=== PATIENT | female | born 1955 | race Caucasian/White ===

== ENCOUNTER 2021-04-04 08:38 | Emergency (ER) | payer OTHER, SELFPAY ==
[2021-04-04 08:41] VITALS: BP 147/79; PULSE 68; TEMP 36.4; O2SAT 100
--- NOTE | 2021-04-04 08:45 | DI.RAD_ITS ---
Exam(s) XR KNEE RT 3V AP,LAT,TALIB EXAM: XR KNEE RT 3V AP,LAT,TALIB CLINICAL HISTORY: pain. TECHNIQUE: 2D digital imaging was performed. COMPARISON: No exams were available for comparison FINDINGS: No evidence of fracture but there is a joint effusion noted. Signifies a probable internal derangeme nt. Mild degenerative changes. No osseous lesions. IMPRESSION: Joint effusion. No obvious fractures. The presence of a joint effusion signifies presence of a mobi le internal derangement. Orthopedic follow-up recommended. DATA REPOSITORY: RADIATION DOSE DELIVERED:
--- NOTE | 2021-04-04 08:54 | ED.GENADUL_ITS ---
Discharge Plan Disposition Patient Disposition: HOME Condition: Stable Discharge Details Clinical Impression: Knee pain, right Primary Care Provider: Jazmine Arora ED Provider: Leonardo Figueredo Home Meds and New Rx's Prescriptions: Continued omega-3 acid ethyl esters 1 gram capsule 2 cap PO BID Qty: 360 RF: 3 gemfibrozil 600 mg tablet 600 mg PO BID RF: 0 famotidine 40 mg tablet 40 mg PO DAILY RF: 0 amlodipine 5 mg tablet 5 mg PO DAILY RF: 0 lisinopril 5 mg tablet 5 mg PO DAILY RF: 0 cyanocobalamin (vitamin B-12) 1,000 mcg capsule 1,000 mcg PO DAILY RF: 0 cholecalciferol (vitamin D3) 25 mcg (1,000 unit) capsule 25 mcg PO DAILY RF: 0 aspirin-acetaminophen (buffer) 250-250 mg Tablet 2 tab PO TID PRNRF: 0 Discharge Instructions Additional Instructions: Your xray showed no broken bones but you did have a small effusion which indicates you likely have an internal knee injury follow up with your primary care provider to discuss having an MRI if you feel more ill, have severe worsening pain, fevers or spreading redness return to the emergency department Medical Decision Making 65 yo female with hx of solitary kidney with ckd, osteoenia, gerd, asthma htn, who comes in with 1-2 months of right knee pain. She can't recall any significant trauma and the pain has slowly been worsening. She denies fevers, chills, dyspnea, abdomen pain, chest pain. She localizes the pain to the posterior knee and has tenderness here. Mild swelling of the knee and ankle, no pain in the ankle and has full range of the ankle with intact sensation. Normal cap refill and pulses. She can flex the knee but limited due to pain and can get it to about 45 degrees, can fully extend, no pain in the hip with full rom. She is able to bear weight. I suspect arthritis vs strain but given the mild swelling will obtain u/s to evaluate for dvt vs chapa's cyst. She has no findings on exam to suggest septic joint, no warmth or erythema. Will xray to evaluate for underlying fracture though unlikely given no significant trauma xray shows joint effusion no fractures and likely indicated mobile internal derangement. Suspect meniscus injury and discussed with her unlikely dvt with this finding and she doesn't want to stay for an u/s which I feel is reasonable. Placed in hinged knee brace and advised to f/u with pcp and possible mri Differential Diagnosis Differential Diagnosis: dvt, strain, arthritis Imaging Data Radiologic Study: Attestation: I personally reviewed and interpreted this imaging study as follows: Imaging: X-Ray Radiologist's impression: IMPRESSION: Joint effusion. No obvious fractures. The presence of a joint effusion signifies presence of a mobile internal derangement. Orthopedic follow-up recommended HPI General Mode of arrival: ambulatory . Date/Time Provider Initiated Documentation: 04/04/21 08:45 . Limitations to Documentation: no limitations . Information obtained by: patient . History of Present Illness 65 year old F presents to the emergency department with the chief complaint of right knee pain, described as moderate, Quality is described as aching, and is localized to the right and lower extremity. Patient reports no radiation. Patient started experiencing this month(s) (1) and it has been constant. Rest improves symptom(s), Movement worsens symptoms . Patient notes denies fever/chills and weakness. Patient did receive the following treatments prior to arrival, none Related Data Home Medications Medication Instructions Recorded Confirmed amlodipine 5 mg tablet 5 mg PO DAILY 03/05/21 04/04/21 cholecalciferol (vitamin D3) 25 25 mcg PO DAILY 03/05/21 04/04/21 mcg (1,000 unit) capsule cyanocobalamin (vitamin B-12) 1,000 mcg PO DAILY 03/05/21 04/04/21 1,000 mcg capsule famotidine 40 mg tablet 40 mg PO DAILY 03/05/21 04/04/21 gemfibrozil 600 mg tablet 600 mg PO BID 03/05/21 04/04/21 lisinopril 5 mg tablet 5 mg PO DAILY 03/05/21 04/04/21 omega-3 acid ethyl esters 1 gram 2 cap PO BID #360 cap 03/07/21 04/04/21 capsule aspirin-acetaminophen (buffer) 2 tab PO TID PRN 04/04/21 04/04/21 Previous Rx's Medication Instructions Recorded omega-3 acid ethyl esters 1 gram 2 cap PO BID #360 cap 03/07/21 capsule Allergies Allergy/AdvReac Type Severity Reaction Status Date / Time Penicillins Allergy Severe Anaphylaxis Verified 04/04/21 08:46 Sulfa (Sulfonamide Allergy Severe Anaphylaxis Verified 04/04/21 08:46 Antibiotics) General Stated Complaint: Orthopedic ALYSHA: 4 Review of Systems All systems reviewed & are unremarkable except as noted in HPI and below Constitutional Constitutional: Denies chills, Denies fever(s) and Denies weakness Cardiovascular Cardiovascular: Denies chest pain and Denies dyspnea Respiratory Respiratory: Denies cough and Denies dyspnea Gastrointestinal Gastrointestinal: Denies abdominal pain, Denies nausea and Denies vomiting Neurologic Neurologic: Denies weakness [facility] Medical History (Updated 04/04/21 @ 10:47 by Leonardo Figueredo MD) Cannabis dependence (~05/2020) Cobalamin deficiency Constipation (~05/2017) Family history of BRCA gene positive Gouty arthropathy History of ectopic Hypercalcemia (~11/2017) Hyperuricemia (~12/2017) Metabolic acidosis Photophobia (~09/2019) Positional vertigo (~05/2020) Tachycardia (~12/2017) Tobacco dependence (~07/2010) 2019 stopped Urinary incontinence, mixed (~11/2018) Vertiginous syndrome (~06/2010) Vitamin D deficiency Surgical History (Updated 03/05/21 @ 17:07 by Marli Allan RN) H/O lumpectomy (~1975) Left wrist H/O right mastectomy (10/23/15) H/O tubal ligation (~1975) History of bilateral salpingo-oophorectomy (BSO) (08/04/15) History of cholecystectomy (05/12/14) History of endometrial ablation (~2008) History of left mastectomy (02/03/12) History of nephrectomy (~1955) Hx of cataract extraction S/P breast reconstruction, bilateral (~2015) S/P lumpectomy, left breast (~1987) S/P thyroid biopsy (01/22/19) Family History (Updated 03/07/21 @ 13:47 by Cele Falk LPN) Father Colon cancer Prostate cancer Cancer skin Heart disease Mother Depression Heart disease Brother , at age 52 from Pancreatic Ca Pancreatic cancer Social History (Updated 03/07/21 @ 13:48 by Cele Falk LPN) Smoking/Tobacco Use Status: Former Tobacco Use Quit Date: 01/05/21 Tobacco: How many years used: 30 Smoking risk assessment performed?: Yes Alcohol Intake: never Drug use: Occasionally Substance use type: marijuana Adopted: No Caregiver/Support person: No Foster care: No Household members: spouse and children Housing: house Number of Children: 3 number of grandchildren: 10 Communication Needs: None Education Level: college Details: bachelor's degree Do you need help understanding health information?: Rarely current occupation: retired NURSE Pets and animals: Yes (3) Pets and animals: dog(s) Sexually active: No Do you think of yourself as: straight/heterosexual Current gender identity: female What is your relationship status?: How often do you talk on the phone with friends or family?: three or more times per week How often do you get together with friends or relatives?: three or more times per week Do you belong to any clubs or organized social groups?: no Panel score (0-1 are the most socially isolated patients): 2 What type of physical activity do you participate in: walking and bicycling Duration: 60-90 minutes/day Frequency: daily Lavern/Scientology: None Special lavern needs: Yes Agree to transfusion: No Seatbelt use: sometimes Helmet use: Yes Helmet use: sometimes Drive intox or ride w/intox driver's license examiner: No Do you feel safe at home: Yes Do you feel safe in your relationship?: Yes Exam Const General: no acute distress Orientation: alert HENMT Head: normal to inspection Ears: external ears normal General nose exam: external nose normal Mouth: moist mucous membranes Eyes General: appearance normal, both eyes and all related structures Neck Neck: normal visual inspection Resp Effort & Inspection: normal respiratory effort and able to speak in complete sentences Cardio Rate: regular rate Skin General skin exam: no rashes or lesions noted Neuro General: patient alert and patient oriented x3 Extrem General: capillary refill normal Psych Mental Status: mental status grossly normal Course Vital Signs Vital signs: Vital Signs Temperature 36.4 C L 04/04/21 08:41 Pulse 68 04/04/21 08:41 Blood Pressure 147/79 H 04/04/21 08:41 Pulse Oximetry 100 04/04/21 08:41 Temperature 36.4 C L 04/04/21 08:41 Temperature Source Temporal Artery Scan 04/04/21 08:41 Pulse 68 04/04/21 08:41 Respiratory Effort Non-Labored 04/04/21 08:45 Blood Pressure 147/79 H 04/04/21 08:41 Blood Pressure Position Supine 04/04/21 08:41 Pulse Oximetry 100 04/04/21 08:41 Oxygen Delivery Method Room Air 04/04/21 08:41 Oxygen Flow Rate 0 04/04/21 08:41 Pain Level 10 04/04/21 08:49
[2021-04-04 10:54] VITALS: TEMP 36.9
== END 2021-04-04 11:09 | disposition home or self-care (01) ==
PROVIDERS: Emergency Provider Emergency Medicine; PCP Internal Medicine
DX: M25.461 Effusion, right knee (principal); I12.9 Hypertensive chronic kidney disease with stage 1 through stage 4 chronic kidney disease, or unspecified chronic kidney disease; N18.9 Chronic kidney disease, unspecified
CPT/HCPCS: 73562; 99283

== ENCOUNTER 2021-04-13 01:17 | Outpatient (CLI) | payer OTHER, SELFPAY ==
[2021-04-13 09:21] LABS: ALT 8 U/L (14-59); AST 11 U/L (15-37); Albumin 3.4 g/dL (3.4-5.0); Alkaline Phosphatase 119 U/L (46-116); Anion Gap 12.7 mmol/L (3-11); BUN 29 mg/dL (7-18); Bilirubin, Total 0.1 mg/dL (0.2-1.0); CO2 23.3 mmol/L (21.0-32.0); Calcium 9.9 mg/dL (8.5-10.1); Calculated LDL 155 mg/dL (<100); Chloride 107 mmol/L (98-107); Cholesterol 224 mg/dL (<200); Glucose 90 mg/dL (74-106); HDL Cholesterol 42 mg/dL (40-60); Potassium 4.7 mmol/L (3.5-5.1); Sodium 143 mmol/L (136-145); TSH 0.98 uIU/mL (0.36-3.74); Total Protein 6.9 g/dL (6.4-8.2); Triglyceride 139 mg/dL (<150)
== END 2021-04-13 01:18 | disposition home or self-care (01) ==
LOC: LBO 01:18
PROVIDERS: PCP Internal Medicine; Visit Provider Internal Medicine
DX: I10 Essential (primary) hypertension (principal); E78.2 Mixed hyperlipidemia; E04.2 Nontoxic multinodular goiter; K76.0 Fatty (change of) liver, not elsewhere classified
CPT/HCPCS: 36415; 80053; 80061; 84443

== ENCOUNTER 2021-05-14 03:27 | Outpatient (CLI) | payer OTHER, SELFPAY ==
[2021-05-14 14:15] LABS: CREATININE 0.9 mg/dL (0.55-1.02); Uric Acid 5.8 mg/dL (2.6-6.0)
[2021-05-14 14:54] LABS: Vitamin B12 1613 pg/mL (193-986)
== END 2021-05-14 03:28 | disposition home or self-care (01) ==
LOC: LBO 03:27
PROVIDERS: PCP Internal Medicine; Visit Provider Internal Medicine
DX: E53.8 Deficiency of other specified B group vitamins (principal); N18.2 Chronic kidney disease, stage 2 (mild); M10.9 Gout, unspecified
CPT/HCPCS: 36415; 82565; 82607; 84550

== ENCOUNTER 2021-07-05 18:17 | Outpatient (REF) | payer OTHER, SELFPAY ==
[2021-07-05 14:54] LABS: Crystals (BF) No Crystals seen
[2021-07-05 15:12] LABS: Clarity Cloudy; Nucleated Cells 7815 uL (0)
[2021-07-05 15:13] LABS: Mononuclear Cells 40 %; Polynuclear Cells 60 %
== END 2021-07-05 18:18 | disposition home or self-care (01) ==
LOC: LBN 18:17
PROVIDERS: PCP Internal Medicine; Visit Provider Student in an Organized Health Care Education/Training Program
DX: M25.561 Pain in right knee (principal)
CPT/HCPCS: 89051; 89060

== ENCOUNTER → 2021-07-18 00:35 | Outpatient (CLI) | payer OTHER, SELFPAY ==
--- NOTE | 2021-07-18 10:30 | DI.MRI_ITS ---
Exam(s) MR LOWER JOINT RT WO EXAM: MR LOWER JOINT RT WO CLINICAL HISTORY: PAIN,INTERNAL DERANGEMENT RT KNEE, M23.91. TECHNIQUE: Multiplanar multisequence MRI was performed. COMPARISON: CR XR KNEE RT 3V AP,LAT,TALIB from 04/04/2021 FINDINGS: BONES: There is no fracture or contusion pattern. JOINTS: Articular cartilage is unremarkable. There is a large joint effusion. TENDONS: Extensor mechanism: Unremarkable. Medial retinaculum: Unremarkable. Lateral retinaculum: Unremarkable. Popliteus: Unremarkable. MUSCLES: Unremarkable. MENISCI: There is a tear of the body and posterior horn of the medial meniscus. There is a rounded h yperintense focus in the body of the meniscus which may represent a meniscal cyst. There is abnormal signal seen in the posterior aspect of the body of the lateral meniscus consistent with a tear. SOFT TISSUES: There is a popliteal cyst. There is fluid seen in the soft tissues around the poplitea l cyst suggesting a rupture. LIGAMENTS: Anterior Cruciate: Unremarkable. Posterior Cruciate: Unremarkable. Medial Collateral:Unremarkable. Lateral Collateral: Unremarkable. OTHER: IMPRESSION: 1. There is a tear of the body and posterior horn of the medial meniscus with findings suggestive of meniscal cyst. 2. Findings of a tear of the body of the lateral meniscus. 3. Large popliteal cyst with findings suggestive of rupture. 4. Large joint effusion. DATA REPOSITORY:
== END ==
PROVIDERS: PCP Internal Medicine; Visit Provider Student in an Organized Health Care Education/Training Program
DX: S83.241A Other tear of medial meniscus, current injury, right knee, initial encounter (principal); S83.281A Other tear of lateral meniscus, current injury, right knee, initial encounter; M71.21 Synovial cyst of popliteal space [Baker], right knee; M25.461 Effusion, right knee
CPT/HCPCS: 73721

== ENCOUNTER 2021-08-13 04:00 | Outpatient (CLI) | payer OTHER, SELFPAY ==
[2021-08-14 20:41] LABS: COVID-19 RT-PCR UVMMC Result Negative (Negative)
== END 2021-08-13 04:01 | disposition home or self-care (01) ==
LOC: LBO 04:01
PROVIDERS: PCP Internal Medicine; Visit Provider Student in an Organized Health Care Education/Training Program
DX: Z20.822 Contact with and (suspected) exposure to COVID-19 (principal)
CPT/HCPCS: 87635; U0003

== ENCOUNTER 2021-08-15 09:45 | Day surgery (SDC) | payer OTHER, SELFPAY ==
[2021-08-15] VITALS (9 sets, daily range): BP systolic 122–155; BP diastolic 55–82; PULSE 50–75; RESP 12–20; TEMP 36.1–36.4; O2SAT 96–100; BMI 20.5
--- NOTE | 2021-08-15 06:43 | W.PM.DSUDISC ---
Discharge Plan Disposition Patient Disposition: HOME Condition: Stable Discharge Details Reason For Visit: Right Knee Arthroscopy Attending Provider: Andrea Zacarias Primary Care Provider: Jazmine Arora Home Meds and New Rx's Prescriptions: New hydrocodone-acetaminophen 5-325 mg tablet 1 tab PO Q6H PRNQty: 5 RF: 0 ibuprofen 600 mg tablet 600 mg PO TID Qty: 30 RF: 0 acetaminophen 500 mg capsule 1,000 mg PO Q8H PRN PRNQty: 30 RF: 0 Continued gemfibrozil 600 mg tablet 600 mg PO DAILY RF: 0 aspirin 81 mg tablet,delayed release (DR/EC) 81 mg PO DAILY RF: 0 Co Q-10 300 mg capsule 300 mg PO DAILY RF: 0 omega-3 acid ethyl esters 1 gram capsule 1 cap PO DAILY RF: 0 famotidine 40 mg tablet 40 mg PO DAILY RF: 0 allopurinol 100 mg tablet 100 mg PO DAILY Qty: 90 RF: 0 lisinopril 5 mg tablet 5 mg PO DAILY Qty: 90 RF: 3 amlodipine 5 mg tablet 5 mg PO DAILY Qty: 90 RF: 3 cyanocobalamin (vitamin B-12) 1,000 mcg capsule 1,000 mcg PO .2x/week RF: 0 cholecalciferol (vitamin D3) 25 mcg (1,000 unit) capsule 50 mcg PO DAILY RF: 0 aspirin-acetaminophen (buffer) 250-250 mg Tablet 2 tab PO TID PRNRF: 0 Discharge Instructions Stand Alone Forms: Deann Knee Arthroscopy Referrals: Andrea Zacarias MD [ [facility] STAFF PHYSICIAN] - Equipment/Supplies: Partial Weight Bearing Crutches Activity:: Activity as Tolerated Remove Dressings/Wound Care:: 72 hours Shower/Bathe:: 72 hours Diet:: As Tolerated Discharge Orders Discharge Orders: Discharge Order (Routine); Ordered 08/15/21 Ordered By: Saloni Ayala DS: Diagnosis Discharge Diagnosis (1) Tear of medial meniscus of right knee: Status: Acute (2) Tear of lateral meniscus of right knee: Status: Acute
[2021-08-15] MEDS: Lactated Ringers 1,000 ML 80 ML IV (10:40)
--- NOTE | 2021-08-15 10:42 | W.ANESPRE ---
General Info Date of Service Date Performed: 08/15/21 Height: 5 ft 7 in Weight: 59.5 kg Body Mass Index (BMI): 20.5 Surgical Procedure: Operation Date: 08/15/21 12:10 Proposed Procedures Side Surgeon p Knee Arthroscopy Right Andrea Zacarias MD Meds Allergies and Home Medications Allergies Allergy/AdvReac Type Severity Reaction Status Date / Time Penicillins Allergy Severe Anaphylaxis Verified 08/15/21 09:53 Sulfa (Sulfonamide Allergy Severe Anaphylaxis Verified 08/15/21 09:53 Antibiotics) colchicine AdvReac Intermediate Nausea, Verified 08/15/21 09:53 vomiting Home Medication Medication Instructions Recorded famotidine 40 mg tablet 40 mg PO DAILY 03/05/21 aspirin-acetaminophen (buffer) 2 tab PO TID PRN 04/04/21 aspirin 81 mg tablet,delayed 81 mg PO DAILY 04/25/21 release gemfibrozil 600 mg tablet 600 mg PO DAILY tab 04/25/21 allopurinol 100 mg tablet 100 mg PO DAILY #90 tab 05/15/21 amlodipine 5 mg tablet 5 mg PO DAILY #90 tab 06/05/21 lisinopril 5 mg tablet 5 mg PO DAILY #90 tab 06/05/21 cholecalciferol (vitamin D3) 25 50 mcg PO DAILY cap 07/25/21 mcg (1,000 unit) capsule coenzyme Q10 300 mg capsule 300 mg PO DAILY 07/25/21 cyanocobalamin (vitamin B-12) 1,000 mcg PO .2x/week cap 07/25/21 1,000 mcg capsule omega-3 acid ethyl esters 1 gram 1 cap PO DAILY cap 07/25/21 capsule acetaminophen 1,000 mg PO Q8H PRN PRN #30 cap 08/15/21 hydrocodone-acetaminophen 1 tab PO Q6H PRN #5 tab 08/15/21 ibuprofen 600 mg PO TID #30 tab 08/15/21 Current Visit Medications: Current Medications Generic Name Dose Route Start Last Admin Trade Name Freq PRN Reason Stop Dose Admin Acetaminophen 650 mg 08/15/21 06:41 Acetaminophen 325 Mg Tab PO Q4H PRN PRN Ringer's Solution 1,000 mls @ 80 mls/hr 08/15/21 06:00 08/15/21 10:40 IV 08/17/21 23:59 80 mls/hr INFUSION CHIQUITA Administration Clindamycin Phosphate/Dextrose 900 mg in 50 mls @ 50 mls/hr 08/15/21 06:00 Cleocin In D5w IVPB 08/15/21 16:00 PREOP CHIQUITA Ondansetron HCl 4 mg/ Sodium 52 mls @ 200 mls/hr 08/15/21 06:41 Chloride IVPB Q6H PRN PRN IV Miscellaneous Supplies 1 each 08/15/21 06:00 Iv Access IV 08/17/21 23:59 DIRECTED CHIQUITA Oxycodone HCl 5 mg 08/15/21 06:41 Oxycodone 5 Mg Tab PO Q3H PRN PRN Pain Sodium Chloride 0 ml 08/15/21 06:00 Normal Saline Flush 10 Ml Syr IV 08/17/21 23:59 PRN PRN Sodium Chloride 0 ml 08/15/21 06:00 Normal Saline 10 Ml Vial IJ 08/17/21 23:59 DIRECTED PRN Sterile Water 0 ml 08/15/21 06:00 Water,Injection,Sterile 10 Ml Vial IJ 08/17/21 23:59 DIRECTED PRN PFSH Active Problems Active Problems: Problem Status Onset Code Vitamin D deficiency E55.9 Anxiety ~10/2020 F41.9 Chronic pain syndrome G89.4 Hypertension ~11/2017 I10 Hypertensive heart and renal disease ~11/2018 Coronary atherosclerosis ~10/2019 I25.10 Mitral valve regurgitation ~12/2017 I34.0 Left ventricular hypertrophy ~11/2018 I51.7 Pulmonary emphysema ~12/2017 J43.9 Asthma J45.909 GERD (gastroesophageal reflux disease) ~07/2010 K21.9 Hiatal hernia ~05/2019 K44.9 Diverticular disease of colon ~12/2017 K57.30 Steatosis of liver ~12/2017 K76.0 Osteopenia ~12/2016 M85.80 Multinodular goiter ~10/2020 E04.2 Hypercholesterolemia with hypertriglyceridemia E78.2 Solitary kidney, acquired Z90.5 Chronic kidney disease, stage 2, mildly decreased GFR N18.2 Gout M10.9 Internal derangement of right knee M23.91 COVID-19 vaccine series declined Z28.21 Tear of medial meniscus of right knee S83.241A Tear of lateral meniscus of right knee S83.281A Medical History Medical History Cannabis dependence (~05/2020) Cobalamin deficiency Constipation (~05/2017) Family history of BRCA gene positive Gouty arthropathy History of ectopic Hypercalcemia (~11/2017) Hyperuricemia (~12/2017) Metabolic acidosis Photophobia (~09/2019) Positional vertigo (~05/2020) Tachycardia (~12/2017) Tobacco dependence (~07/2010) 2019 stopped Urinary incontinence, mixed (~11/2018) Vertiginous syndrome (~06/2010) Medical History Comments:: Per pt. states she gets high fevers and SOB with anesthesia, pt. states this was when she had cancer usually only uses propofol. Pt reports aunt/sister have difficulty waking up post anesthesia. Surgical History Surgical History H/O lumpectomy (~1975) Left wrist H/O right mastectomy (10/23/15) H/O tubal ligation (~1975) History of bilateral salpingo-oophorectomy (BSO) (08/04/15) History of cholecystectomy (05/12/14) History of endometrial ablation (~2008) History of left mastectomy (02/03/12) bilat History of nephrectomy (~1955) Hx of cataract extraction S/P breast reconstruction, bilateral (~2015) S/P lumpectomy, left breast (~1987) S/P thyroid biopsy (01/22/19) Tobacco Smoking/Tobacco Use Status: Former Tobacco Use Tobacco: How many years used: 30 Alcohol Alcohol Intake: never Substance Use Substance use: Occasionally Substance use type: marijuana Details: Last use of cannabis 08/11/21. Vital Signs and Lab Results Vital Signs Most Recent Vital Signs in EMR: Most Recent Vital Signs Temp Pulse Resp BP Pulse Ox 36.1 C L 75 18 138/72 98 08/15/21 10:21 08/15/21 10:21 08/15/21 10:21 08/15/21 10:21 08/15/21 10:21 Lab Results Blood Type / Crossmatch: No Data to Display Complete Blood Count: No Data to Display Complete Metabolic Panel: No Data to Display Liver Function Panel: No Data to Display Coagulation Panel: No Data to Display Cardiac Panel: No Data to Display Arterial Blood Gas: No Data to Display Venous Blood Gas: No Data to Display Pancreas Panel: No Data to Display Thyroid Panel: No Data to Display Infectious Disease: Coronavirus (COVID-19)(PCR) Negative (Negative) 08/13/21 09:52 08/13/21 Blood Cultures: No Data to Display Toxicology Panel: No Data to Display Anesthesia Assessment and Plan Anesthesia History Personal History: No History of Anesthesia Complications and Other Family History: No Family History of Anesthesia Complications and Other Exercise Tolerance Exercise Tolerance: Metabolic Equivalents>4 Pertinent Negatives Pertinent Negatives: No Symptoms of GERD, No Major Cardiovascular Symptoms or Complaints, No Major Pulmonary Symptoms or Complaints and No History of CVA/TIA Cardiac & Pulmonary Exam Cardiac Exam: Normal S1/S2 Heart Sounds Pulmonary Exam: Clear Bilateral Breath Sounds Implantable Cardiac Device Does patient have a Pacemaker or an ICD?: No Airway Exam Known Difficult Airway: No Mallampati Class: 3 Mouth Opening: Normal (> 3cm) Thyromental Distance: Greater than 3 cm Neck Range of Motion: Full ROM Neck Circumference: Normal Teeth Condition: Normal Dentition and Loose or Chipped (Left upper molar broken) ASA Classification ASA Score: ASA 2 Emergency Case?: No NPO Status NPO Status: NPO Clears >2 hours, Solids >8 hours Anesthesia Plan Resuscitation Status: Full Code Anesthesia Technique: General Anesthesia Airway Planned: LMA Monitors Used: Standard Monitors
[2021-08-15] MEDS: CLINDAMYCIN 900 MG/50 ML BAG 50 MG IVPB (11:31)
[2021-08-15] MEDS: Bupivacaine 0.5% Pres-Free 30 ML VIAL (12:26)
[2021-08-15] MEDS: fentaNYL 100 MCG/2 ML VIAL IVP ×2 (12:52→13:10)
--- NOTE | 2021-08-15 13:26 | ROE_ITS ---
Date of service: 08/15/21 Time of Service: 12:46 Operative Note Operative Note DATE OF PROCEDURE: 08/15/21 PRE-OP DIAGNOSIS: Right Knee Medial and Lateral Meniscus Tears POST-OP DIAGNOSIS: same PROCEDURE: Right Knee Arthroscopic Partial Lateral and Medial Menisectomies SURGEON: Andrea Zacarias ANESTHESIA TYPE: General LMA/ETT Refer to Anesthesia Record ESTIMATED BLOOD LOSS: 0 PATHOLOGY: none sent TOURNIQUET TIME: 0 COMPLICATIONS: None Patient was transported to: PACU Patient's condition: stable Indications: I have seen Cele in clinic for symptoms of a meniscus tear. This was confirmed based on MRI and exam findings. Nonoperative measures were exhausted but disability and pain persisted. I discussed knee arthroscopy with meniscal intervention with the patient. I reviewed the risks of the procedure to include, but not limited to, bleeding, infection, pain, stiffness, damage to nerves or vessels, recurrence, blood clot. Despite these risks, the patient elected to proceed. Findings: A diagnostic arthroscopy was performed with the following findings: Suprapatellar Pouch: Significant inflammation, No loose bodies Medial Compartment: Complex medial meniscal tear of the posterior horn, Intact meniscal root, Grade II chondromalacia of the femur, No loose bodies Notch: ACL and PCL were intact Lateral Compartment: Complex tear of the posterior horn into the root as well as the body, partially torn root, Focal Grade IV chondromalacia posterolaterally an d some more diffuse Grade I/II changes of the tibia, No loose bodies Patellofemoral Compartment: Grade I chondromalacia laterally, No apparent patellar maltracking Procedure Description: Cele was greeted in the preoperative holding area where the correct side was identified and marked. The consent was reviewed with the patient and signed. The history and physical was updated. All questions were answered. She was taken back to the operating room. The patient was placed into the supine position on the operating room table. A nonsterile tourniquet was placed high onto the leg but not used. All bony prominences were well padded. Prophylactic antibiotics in the form of Clindamycin were administered. The right leg was then prepped with Chloraprep and draped in a standard fashion with stockinette and extremity drape. A timeout to confirm correct identity, side and site, procedure, allergies, anesthesia, and medical concerns was performed. The leg was placed into a pneumatic leg sabillon, [id number]. A standard lateral portal was made at the lateral border of the patella tendon in line with the inferior pole of the patella, soft spot. The skin and deep tissue was incised sharply and the blunt trochar was inserted atraumatically. A diagnostic arthroscopy was performed and the findings are listed above. The suprapatellar pouch had significant inflammatory change. The patellofemoral articulation showed some Grade I chondromalacia as well as good tracking. The lateral gutter had no loose bodies and the medial gutter had no loose bodies. The knee was brought into some valgus stress in extension to open the medial compartment. A medial portal was made, localized by a spinal needle. The portal was created with an #11 blade through skin and capsule under direct visualization avoiding any meniscal injury. A probe was then inserted into the medial compartment. The medial compartment was fully inspected. The chondral surface of the tibia showed no significant chondromalacia and the surface of the femur showed areas of Grade II chondromalacia. The medial meniscus had a complex tear involving the posterior horn and the body. There was also some mild surface fraying anteriorly. The root was intact. After evaluation, the meniscus was debrided down to a stable base using a series of biters and arthroscopic valdo. It was probed afterwards to confirm that the tear had been removed and the meniscus was stable. The notch was then inspected which showed an intact ACL and an intact PCL. The leg was then brought into a figure of 4 position. The lateral compartment was fully inspected with the arthroscope and a probe. The chondral surface of the lateral femur showed mild chondromalacia. The chondral surface of the lateral tibia showed more diffuse Grade II changes with a focal area of Grade IV chondromalacia involving the posterolateral tibia. The lateral meniscus had a complex tear just lateral to the root. This appeared to have a pimary radial component with a loose segment in the posterior horn. The loose segment was removed and there were still some peripheral fibers attaching the body and horn to the root. Additionally, there was a tear anteriorly involving the superior half of the anterior meniscus. After evaluation, the meniscus was debrided down to a stable base using a series of biters and arthroscopic valdo. It was probed afterwards to confirm that the tear had been removed and the meniscus was stable. The arthroscope was brought back into the suprapatellar pouch and the leg was in full extension. The knee was thoroughly irrigated with the arthroscopic fluid on high flow and pressure. Inflow was stopped and excess fluid was removed. The wounds were closed with 4-0 Nylon. They were dressed with Xeroform, 4x4 gauze, ABD pad, Kerlix and an CONSTANTINO wrap. A cryo-cuff was applied. The patient tolerated the procedure well and was returned to the Same Day Surgery area in a stable condition suffering no known complication.
--- NOTE | 2021-08-15 13:54 | W.ANESPOSTOP ---
Postoperative Evaluation Date, Time and Location Date Performed: 08/15/21 Time Performed: 13:54 Patient Location: Day Surgery Unit Vital Signs Most Recent Imported Vital Signs: Most Recent Vital Signs Temp Pulse Resp BP Pulse Ox 36.1 C L 50 L 16 141/77 H 100 08/15/21 13:26 08/15/21 13:26 08/15/21 13:26 08/15/21 13:26 08/15/21 13:26 Pain Score Most Recent Pain Score: Most Recent Pain Score Pain Level 4 08/15/21 13:26 Assessment Mental Status: Awake (Alert & Oriented to Patient Baseline) Airway and Respiratory Function: Patent airway with normal (patient baseline) respiratory exam Cardiovascular Function: Hemodynamically Stable Hydration Status: Adequately Hydrated Nausea & Vomiting: No Nausea or Vomiting (slight nausea treated with nancy george and crackers per patient request) Pain: Pain is tolerable per patient Peripheral Nerve Block: Patient did not receive a nerve block
[2021-08-15] MEDS: oxyCODONE 5 MG TAB PO (14:07)
== END 2021-08-15 14:40 | disposition home or self-care (01) ==
PROVIDERS: PCP Internal Medicine; Visit Provider Student in an Organized Health Care Education/Training Program
PROC: (CPT 29870; principal; 2021-08-15 12:00)
DX: S83.241A Other tear of medial meniscus, current injury, right knee, initial encounter (principal); S83.281A Other tear of lateral meniscus, current injury, right knee, initial encounter; M94.261 Chondromalacia, right knee; X58.XXXA Exposure to other specified factors, initial encounter
CPT/HCPCS: 29880; J1885; J2405; J2704; J3010

== ENCOUNTER 2021-08-27 04:17 | Outpatient (CLI) | payer OTHER, SELFPAY ==
[2021-08-27 22:21] LABS: CREATININE 1.1 mg/dL (0.55-1.02); Estimated GFR 49.39 (mL/min/1.73m2); Uric Acid 6.1 mg/dL (2.6-6.0)
== END 2021-08-27 04:18 | disposition home or self-care (01) ==
PROVIDERS: PCP Internal Medicine; Visit Provider Internal Medicine
DX: M10.9 Gout, unspecified (principal); N18.2 Chronic kidney disease, stage 2 (mild); Z47.89 Encounter for other orthopedic aftercare
CPT/HCPCS: 36415; 82565; 84550

== ENCOUNTER 2021-10-17 01:44 | Outpatient (CLI) | payer OTHER, SELFPAY ==
[2021-10-17 08:10] LABS: Estimated GFR 55.14 (mL/min/1.73m2)
== END 2021-10-17 01:45 | disposition home or self-care (01) ==
LOC: LBO 01:44
PROVIDERS: PCP Internal Medicine; Visit Provider Internal Medicine
DX: M10.9 Gout, unspecified (principal); N18.2 Chronic kidney disease, stage 2 (mild)
CPT/HCPCS: 36415; 82565; 84550

== ENCOUNTER → 2022-07-17 02:43 | Outpatient (CLI) | payer OTHER, SELFPAY ==
--- NOTE | 2022-07-17 07:30 | DI.RAD_ITS ---
Exam(s) XR RIBS RT W PA LAT CHEST EXAM: XR RIBS RT W PA LAT CHEST CLINICAL HISTORY: eval rt rib, scar tissue, ?mass, breast ca,chest pain,soft tissue complaint TECHNIQUE: 2D digital imaging was performed. COMPARISON: CR CHEST PA + LATERAL PRE OP HF from 01/29/2016 FINDINGS: Total = 6 views Less than optimal right rib views reveal no obvious right rib fractures nor rib lesions. Incidentall y noted are healed fractures of the left 5th and 6th ribs. CXR- 2 VIEWS: No lung contusion or pneumothorax. There is no pleural effusion evident. Heart size is normal and there is no significant mediastinal widening. Breast implants noted. IMPRESSION: 1. No obvious rib fractures evident. Also no significant rib lesions. 2. No acute pulmonary findings. DATA REPOSITORY: RADIATION DOSE DELIVERED:
== END ==
PROVIDERS: PCP Student in an Organized Health Care Education/Training Program; Visit Provider Student in an Organized Health Care Education/Training Program
DX: R07.89 Other chest pain (principal); M79.89 Other specified soft tissue disorders; M79.18 Myalgia, other site
CPT/HCPCS: 71046; 71100

== ENCOUNTER 2022-07-17 03:42 | Outpatient (CLI) | payer OTHER, SELFPAY ==
[2022-07-17 08:39] LABS: Abs Immature Grans 0.03 10^3/uL (0.0-0.06); Absolute Basophil Count 0.07 10^3/uL (0.0-0.2); Absolute Eosinophil Count 0.17 10^3/uL (0.0-0.7); Absolute Lymphocyte Count 2.44 10^3/uL (1.2-3.4); Absolute Monocyte Count 0.52 10^3/uL (0.1-0.8); Absolute Neutrophil Count 3.99 10^3/uL (1.2-6.7); Eosinophils % 2.4; HGB 13.1 g/dL (11.2-15.7); Immature Grans % 0.4; Lymphocytes % 33.8; MCH 28.9 pg (27.0-33.0); MCV 90 fL (80-95); MPV 9.7 fL (8.0-11.0); Monocytes % 7.2; Neutrophils % 55.2; Platelet Count 248 10^3/uL (130-400); RBC 4.54 10^6/uL (3.93-5.22); RDW 14.9 % (11.7-14.6); RDW-SD 49.5 fL; WBC 7.22 10^3/uL (4.4-10.8)
[2022-07-17 09:41] LABS: ALT 24 U/L (14-59); AST 16 U/L (15-37); Albumin 3.8 g/dL (3.4-5.0); Alkaline Phosphatase 92 U/L (46-116); Anion Gap 5.6 mmol/L (3-11); BUN 19 mg/dL (7-18); Bilirubin, Total 0.3 mg/dL (0.2-1.0); CO2 28.4 mmol/L (21.0-32.0); Calcium 9.7 mg/dL (8.5-10.1); Calculated LDL 184 mg/dL (<100); Chloride 104 mmol/L (98-107); Cholesterol 263 mg/dL (<200); Estimated GFR 60.98 (mL/min/1.73m2); Glucose 100 mg/dL (74-106); HDL Cholesterol 46 mg/dL (40-60); Sodium 138 mmol/L (136-145); TSH (W/Ref FT4) 0.63 uIU/mL (0.36-3.74); Total Protein 7.3 g/dL (6.4-8.2); Triglyceride 166 mg/dL (<150)
== END 2022-07-17 03:43 | disposition home or self-care (01) ==
LOC: LBO 03:42
PROVIDERS: PCP Student in an Organized Health Care Education/Training Program; Visit Provider Student in an Organized Health Care Education/Training Program
DX: R07.9 Chest pain, unspecified (principal); E04.2 Nontoxic multinodular goiter; N61.0 Mastitis without abscess; N18.2 Chronic kidney disease, stage 2 (mild); M79.89 Other specified soft tissue disorders; K76.0 Fatty (change of) liver, not elsewhere classified; Z90.5 Acquired absence of kidney
CPT/HCPCS: 36415; 80053; 80061; 84443; 85025

== ENCOUNTER 2022-07-23 02:28 | Outpatient (CLI) | payer OTHER, SELFPAY ==
--- NOTE | 2022-07-23 07:15 | DI.US_ITS ---
Exam(s) US BREAST RT COMPLETE EXAM: US BREAST RT COMPLETE CLINICAL HISTORY: eval rt chest wall pain; eval scar tiss;? mass,new rt axilla/chest pain, TECHNIQUE: Ultrasound right breast performed using standard protocol. COMPARISON: No exams were available for comparison FINDINGS: No solid or cystic masses, hypoechoic foci, areas of abnormal shadowing, or areas of skin thickening. The patient has a right breast implant. IMPRESSION: No sonographically suspicious finding. DATA REPOSITORY:
== END 2022-07-23 02:48 ==
LOC: DI 02:29
PROVIDERS: PCP Student in an Organized Health Care Education/Training Program; Visit Provider Student in an Organized Health Care Education/Training Program
DX: M79.89 Other specified soft tissue disorders (principal); R07.89 Other chest pain; Z90.11 Acquired absence of right breast and nipple; Z98.82 Breast implant status; M79.621 Pain in right upper arm
CPT/HCPCS: 76642

== ENCOUNTER 2022-10-14 01:17 | Outpatient (CLI) | payer OTHER, SELFPAY ==
--- NOTE | 2022-10-14 07:30 | DI.US_ITS ---
Exam(s) US THYROID EXAM: US THYROID CLINICAL HISTORY: multinodular goiter, e04.2. TECHNIQUE: Ultrasound thyroid performed using standard protocol. COMPARISON: US US thyroid from 11/06/2020 FINDINGS: ISTHMUS: 2.7 mm RIGHT LOBE: Size: 5.1 x 1.7 x 2.1 cm Echogenicity: Normal. Vascularity: Normal. Nodules: There are multiple right thyroid nodules present. There is a 1 x 0.5 x 0.7 cm solid isoecho ic nodule in the inferior pole which does show punctate calcifications. This would be consistent wit h a TI rads level 4 nodule. Due to its size, follow-up is recommended. None of the other nodules me et the criteria for follow-up or biopsy. LEFT LOBE: Size: 4.9 x 1.8 x 2.1 cm Echogenicity: Normal. Vascularity: Normal. Nodules: There are multiple left thyroid nodules. There is a 1.9 x 1.4 x 1.4 cm mixed isoechoic nodu le with punctate calcifications in the inferior pole. It is consistent with a TI rads level 4 nodule . Due to its size, FNA is recommended. There is also a 1.1 x 0.9 x 0.9 cm solid hypoechoic nodule w ith punctate calcifications in the lower pole consistent with a TI rads level 4 nodule. Due to its s ize, follow-up is recommended. No other nodules meet the criteria for follow-up or biopsy. OTHER FINDINGS: Sonographically benign-appearing lymph nodes are seen in the neck. The largest on th e left measures 1.3 x 0.4 x 0.5 cm. The largest on the right measures 0.7 x 0.2 x 0.5 cm. IMPRESSION: 1. Multinodular thyroid gland. 2. There is a 1.9 x 1.4 x 1.4 cm nodule in the inferior left lobe of the thyroid gland consistent wit h a TI rads level 4 nodule. Due to its size, FNA is recommended. 3. Two nodules, 1 in each of the thyroid lobes, requiring follow-up imaging due to their size. DATA REPOSITORY:
== END 2022-10-14 01:37 ==
LOC: DI 01:17
PROVIDERS: PCP Student in an Organized Health Care Education/Training Program; Visit Provider Student in an Organized Health Care Education/Training Program
DX: E04.2 Nontoxic multinodular goiter (principal)
CPT/HCPCS: 76536

== ENCOUNTER 2022-10-23 12:50 | Emergency (ER) | payer OTHER, SELFPAY ==
[2022-10-23] VITALS (21 sets, daily range): BP systolic 106–155; BP diastolic 55–75; PULSE 50–77; RESP 6–30; TEMP 36.4–36.8; O2SAT 92–100
--- NOTE | 2022-10-23 12:51 | RT.EKG_ITS ---
APPROVED REPORT Exam: Resting ECG Reason for Exam: chest pain Patient Location: E HR:53 bpm ECG Measurements Heart Rate 53 AXIS IL 155 P 38 QRSd 99 QRS 91 QT 439 T 43 QTc 414 Conclusion Sinus bradycardia...rate< 60 Right axis deviation...QRS axis ( 04,584)
--- NOTE | 2022-10-23 13:02 | DI.RAD_ITS ---
Exam(s) XR CHEST 1V IN DI DEPT EXAM: XR CHEST 1V IN DI DEPT CLINICAL HISTORY: chest pain TECHNIQUE: 2D digital imaging was performed. COMPARISON: CR XR RIBS RT W PA LAT CHEST from 07/17/2022 FINDINGS: LUNGS: Clear. No pleural abnormality seen. HEART: Normal size. AORTA: Normal diameter. BONES: Unremarkable for age. Old left upper rib fractures. Soft tissues: Surgical clips left axilla. IMPRESSION: No acute findings. DATA REPOSITORY: RADIATION DOSE DELIVERED:
--- NOTE | 2022-10-23 13:15 | DI.CT_ITS ---
Exam(s) CT THORACIC SPINE WO EXAM: CT THORACIC SPINE WO CLINICAL HISTORY: back pain hx of cancer. TECHNIQUE: Imaging Protocol: Axial computed tomography images with coronal and sagittal reformatted images were created and reviewed. CONTRAST MATERIAL: Noncontrast COMPARISON: CT CT CHEST LUNG CANCER SCREEN from 05/14/2021 CR XR RIBS RT W PA LAT CHEST from 07/17/2022 FINDINGS: Bones: No fractures are seen. The alignment of the spine is normal including the cervicothoracic jon ction. There are mild degenerative disc changes in the midthoracic region. Advanced degenerative ch anges are seen in the lower cervical spine. No disc herniation is visible. Soft tissues: The soft tissues of the chest are unremarkable. Lungs are clear. No pneumothorax. IMPRESSION: Mild degenerative changes in the mid thoracic spine. RADIATION DOSE DELIVERED: 419.91mGy.cm Total DLP DATA REPOSITORY: All CT scans at this facility are submitted to the National Radiology Data Registry (NRDR) Dose Index Registry (DIR) with the [employer] ([employer]). RADIATION OPTIMIZATION: All CT scans at this facility use at least one of these dose optimization te chniques: automated exposure control; mA and/or kV adjustment per patient size (includes targeted exa ms where dose is matched to clinical indication); or iterative reconstruction.
[2022-10-23 13:18] LABS: Abs Immature Grans 0.02 10^3/uL (0.0-0.06); Absolute Basophil Count 0.06 10^3/uL (0.0-0.2); Absolute Monocyte Count 0.13 10^3/uL (0.1-0.8); Absolute Neutrophil Count 6.08 10^3/uL (1.2-6.7); Basophils % 0.8; HCT 42.1 % (36.0-46.0); Immature Grans % 0.3; Lymphocytes % 13.7; MCHC 33.3 % (32.0-36.0); MCV 87 fL (80-95); MPV 9.6 fL (8.0-11.0); Monocytes % 1.8; Neutrophils % 83.4; Platelet Count 278 10^3/uL (130-400); RBC 4.82 10^6/uL (3.93-5.22); RDW 14.6 % (11.7-14.6); RDW-SD 47.3 fL; WBC 7.29 10^3/uL (4.4-10.8)
--- NOTE | 2022-10-23 13:24 | DI.CT_ITS ---
Exam(s) CT ABDOMEN PELVIS WO EXAM: CT ABDOMEN PELVIS WO CLINICAL HISTORY: midline back pain radiating into abdomen- IV contrast not available. TECHNIQUE: Imaging Protocol: Axial computed tomography images with coronal and sagittal reformatted images were created and reviewed. Oral: / no COMPARISON: CT CT CHEST LUNG CANCER SCREEN from 05/14/[address] THORACIC SPINE WO from 10/23/2022 FINDINGS: Exam limited by patient motion. ABDOMEN: Lung Bases: Normal where visualized. Liver: Normal density. No measurable mass. Gallbladder and biliary tract: No radiodense calculus or dilation. Status post cholecystectomy. Pancreas: Normal density, no abnormal calcifications or inflammatory process. Spleen: Normal. Kidneys: Normal size, contour and axis. No radiodense stones or obstructive uropathy. No suspicious m asses seen. Adrenal glands: No masses seen. Lymph nodes: Within normal limits. Stomach unremarkable. Duodenal diverticulum, 2nd portion. Abdominal Aorta: Abdominal portion non-dilated. Mild atherosclerotic changes. Soft tissues: Bilateral breast implants PELVIS: Bladder: Symmetric distention, no gross wall thickening. Bowel: Prominent diverticulosis transverse, descending and sigmoid colon. Large quantity of stool in the rectum. No obstruction or bowel wall thickening. Appendix normal. Peritoneal cavity: No ascites, collection or mesenteric inflammatory response. Reproductive organs: Within normal limits. Bones: Lumbar spine: Degenerative disc changes L2-3. Mild degenerative disc changes L5-S1. No spondyl olysis, spondylolisthesis or scoliosis. IMPRESSION: Prominent diverticulosis. No evidence of diverticulitis. RADIATION DOSE DELIVERED: 949.19mGy.cm Total DLP DATA REPOSITORY: All CT scans at this facility are submitted to the National Radiology Data Registry (NRDR) Dose Index Registry (DIR) with the [employer] ([employer]). RADIATION OPTIMIZATION: All CT scans at this facility use at least one of these dose optimization te chniques: automated exposure control; mA and/or kV adjustment per patient size (includes targeted exa ms where dose is matched to clinical indication); or iterative reconstruction.
[2022-10-23 13:29] LABS: Lipase 48 U/L (16-77)
[2022-10-23 13:36] LABS: ALT 28 U/L (14-59); AST 17 U/L (15-37); Albumin 3.9 g/dL (3.4-5.0); Alkaline Phosphatase 113 U/L (46-116); Anion Gap 11.4 mmol/L (3-11); BUN 17 mg/dL (7-18); Bilirubin, Total 0.4 mg/dL (0.2-1.0); CO2 25.6 mmol/L (21.0-32.0); CREATININE 1.1 mg/dL (0.55-1.02); Calcium 9.8 mg/dL (8.5-10.1); Chloride 106 mmol/L (98-107); Estimated GFR 54.39 (mL/min/1.73m2); Glucose 107 mg/dL (74-106); Potassium 3.9 mmol/L (3.5-5.1); Sodium 143 mmol/L (136-145); Total Protein 7.6 g/dL (6.4-8.2); Troponin I < 50 ng/L (<or=60)
[2022-10-23] MEDS: MORPHine 10 MG/ML VIAL 2 MG IVP (14:11)
[2022-10-23] MEDS: Metoclopramide 10 MG/2 ML VIAL IVP (14:11)
[2022-10-23] MEDS: Lactated Ringers 1,000 ML 1000 ML IV (14:12)
[2022-10-23] MEDS: diphenhydrAMINE 50 MG/ML VIAL 25 MG IVP (14:25)
[2022-10-23 15:43] LABS: COVID-19 PCR Negative (Negative); Influenza A PCR Negative (Negative); Influenza B PCR Negative (Negative); RSV PCR Negative (Negative)
[2022-10-23 15:46] LABS: Source Nasopharynx
--- NOTE | 2022-10-23 16:20 | W.ED.GENAD ---
Discharge Plan Disposition Patient Disposition: Home Discharge Details Clinical Impression: Nausea & vomiting Primary Care Provider: Yolis Jacobo ED Provider: Danya Herrmann Home Meds and New Rx's Prescriptions: New promethazine 12.5 mg tablet 12.5 mg PO TID PRNQty: 14 0RF Rx Instructions: 3 doses during day; last dose no later than 4 hr before bedtime sucralfate [Carafate] 1 gram tablet 1 g PO BID Qty: 10 0RF sucralfate [Carafate] 1 gram tablet 1 g PO BID Qty: 10 0RF Rx Instructions: Take 1 tablet twice daily for the next 5 days promethazine 12.5 mg tablet 12.5 mg PO TID PRN (Reason: nausea and vomiting) Qty: 14 0RF Rx Instructions: Take 1 tablet up to 3 times daily as needed for nausea and vomiting. Continued omega-3 acid ethyl esters 1 gram capsule 2 cap PO DAILY ondansetron HCl 4 mg tablet 4 mg PO Q8H PRN (Reason: nausea) Qty: 30 1RF magnesium oxide 400 mg magnesium capsule 400 mg PO QHS Qty: 90 1RF Rx Instructions: Take qHs for sleep, calm, muscle cramping cyanocobalamin (vitamin B-12) 1,000 mcg capsule 1,000 mcg PO .2x/week Hold Instructions: WNL per 2020 labs allopurinol 100 mg tablet 200 mg PO DAILY Qty: 180 3RF acetaminophen 500 mg capsule 1,000 mg PO Q8H PRN PRN (Reason: fever or pain) Qty: 60 1RF Hold Instructions: Steathosis amlodipine 5 mg tablet 5 mg PO DAILY Qty: 90 3RF aspirin 81 mg tablet,delayed release (DR/EC) 81 mg PO DAILY Qty: 10 0RF Rx Instructions: Contraindicated due to NSAID avoidance: CLARIFY with patient cholecalciferol (vitamin D3) 25 mcg (1,000 unit) capsule 50 mcg PO DAILY Qty: 90 1RF Co Q-10 300 mg capsule 300 mg PO DAILY Qty: 90 1RF famotidine 40 mg tablet 40 mg PO DAILY Qty: 90 3RF lisinopril 5 mg tablet 5 mg PO DAILY Qty: 90 3RF aspirin-acetaminophen (buffer) 250-250 mg Tablet 2 tab PO TID PRN Discharge Instructions Instructions: Acute Nausea and Vomiting (ED) Additional Instructions: Please take medications as prescribed. You are prescribed Phenergan and Carafate. Clear liquids advance as tolerated. Stay away from anything fried, fatty, spicy or dairy. Follow up with primary care provider in 3-5 days. Return to ED sooner if any worsening or concerns. Increase oral fluids. Referrals: Yolis Jacobo, [Primary Care Provider] - 3 days Discharge Data Discharge Date/Time-TO BE ENTERED AT DEPARTURE: 10/23/22 18:41 Medical Decision Making <SANDY Ba - Last Filed: 10/24/22 08:57> This 67-year-old female presents with chest pain radiating from her back, longstanding history of back pain states this is slightly different and more intense Denies any significant exertion Denies any history of coronary artery disease Received fluids, antiemetics, Benadryl, and pain medication, marked improvement in symptoms Did have a reaction to the Reglan CT thoracic spine and abdomen pelvis not show evidence of acute abnormality per radiology interpretation I reviewed, pending urinalysis, repeat troponin, and repeat EKG at 430, will transition care to Reshma Priest We will likely need a prescription for Carafate, Compazine, and close outpatient follow-up with primary care physician 1704: [place]: Care assumed from provider (SANDY Ba) Please see their initial HPI, PE, and documentation. Discussed patient details and case and pending workup and disposition. Patient is hemodynamically stable, and alert and oriented. At the time of signout awaiting repeat EKG and repeat troponin. Repeat EKG and troponin are within normal limits. No significant change on EKG. On patient reevaluation she reports feeling much better after the Ativan. She states she feels much better and well enough to be discharged home. Discussed strict return instructions and follow-up care she verbalized understanding. This text was generated using [employer] system, please disregard any oddities of phrase or misspellings. Medical Records Medical records reviewed: Yes I reviewed the patient's medical records. <Danya Herrmann NP - Last Filed: 10/23/22 18:52> This 67-year-old female presents with chest pain radiating from her back, longstanding history of back pain states this is slightly different and more intense Denies any significant exertion Denies any history of coronary artery disease Received fluids, antiemetics, Benadryl, and pain medication, marked improvement in symptoms Did have a reaction to the Reglan CT thoracic spine and abdomen pelvis not show evidence of acute abnormality, pending urinalysis, repeat troponin, and repeat EKG at 430, will transition care to Reshma Cem We will likely need a prescription for Carafate, Compazine, and close outpatient follow-up with primary care physician 1704: [place]: Care assumed from provider (SANDY Ba) Please see their initial HPI, PE, and documentation. Discussed patient details and case and pending workup and disposition. Patient is hemodynamically stable, and alert and oriented. At the time of signout awaiting repeat EKG and repeat troponin. Repeat EKG and troponin are within normal limits. No significant change on EKG. On patient reevaluation she reports feeling much better after the Ativan. She states she feels much better and well enough to be discharged home. Discussed strict return instructions and follow-up care she verbalized understanding. This text was generated using [employer] dictation system, please disregard any oddities of phrase or misspellings. Lab Data Lab results reviewed: Yes I reviewed the patient's lab results. Labs: Laboratory Tests Range/Units 10/23/22 10/23/22 10/23/22 13:10 13:10 13:10 WBC (4.4-10.8) 10^3/uL 7.29 RBC (3.93-5.22) 10^6/uL 4.82 Hgb (11.2-15.7) g/dL 14.0 Hct (36.0-46.0) % 42.1 MCV (80-95) fL 87 MCH (27.0-33.0) pg 29.0 MCHC (32.0-36.0) % 33.3 RDW (11.7-14.6) % 14.6 Plt Count (130-400) 10^3/uL 278 MPV (8.0-11.0) fL 9.6 Immature Gran % 0.3 Neutrophils % 83.4 Lymphocytes % 13.7 Monocytes % 1.8 Eosinophils % 0.0 Basophils % 0.8 Nucleated RBC % (0.0-0.3) % 0.0 Absolute Neutrophils (1.2-6.7) 10^3/uL 6.08 Absolute Lymphocytes (1.2-3.4) 10^3/uL 1.00 L Absolute Monocytes (0.1-0.8) 10^3/uL 0.13 Absolute Eosinophils (0.0-0.7) 10^3/uL 0.00 Absolute Basophils (0.0-0.2) 10^3/uL 0.06 Sodium (136-145) mmol/L 143 Potassium (3.5-5.1) mmol/L 3.9 Chloride (98-107) mmol/L 106 Carbon Dioxide (21.0-32.0) mmol/L 25.6 Anion Gap (3-11) mmol/L 11.4 H BUN (7-18) mg/dL 17 Creatinine (0.55-1.02) mg/dL 1.1 H Est GFR (CKD-EPI 2020) (mL/min/1.73m2) 54.39 Glucose (74-106) mg/dL 107 H Calcium (8.5-10.1) mg/dL 9.8 Magnesium (1.8-2.4) mg/dL 2.0 Total Bilirubin (0.2-1.0) mg/dL 0.4 AST (15-37) U/L 17 ALT (14-59) U/L 28 Alkaline Phosphatase (46-116) U/L 113 Troponin I (<or=60) ng/L < 50 Total Protein (6.4-8.2) g/dL 7.6 Albumin (3.4-5.0) g/dL 3.9 Lipase (16-77) U/L 48 COVID-19 Source SARS-CoV-2 (PCR) (Negative) Influenza Type A (PCR) (Negative) Influenza Type B (PCR) (Negative) RSV (PCR) (Negative) Range/Units 10/23/22 10/23/22 14:55 16:45 WBC (4.4-10.8) 10^3/uL RBC (3.93-5.22) 10^6/uL Hgb (11.2-15.7) g/dL Hct (36.0-46.0) % MCV (80-95) fL MCH (27.0-33.0) pg MCHC (32.0-36.0) % RDW (11.7-14.6) % Plt Count (130-400) 10^3/uL MPV (8.0-11.0) fL Immature Gran % Neutrophils % Lymphocytes % Monocytes % Eosinophils % Basophils % Nucleated RBC % (0.0-0.3) % Absolute Neutrophils (1.2-6.7) 10^3/uL Absolute Lymphocytes (1.2-3.4) 10^3/uL Absolute Monocytes (0.1-0.8) 10^3/uL Absolute Eosinophils (0.0-0.7) 10^3/uL Absolute Basophils (0.0-0.2) 10^3/uL Sodium (136-145) mmol/L Potassium (3.5-5.1) mmol/L Chloride (98-107) mmol/L Carbon Dioxide (21.0-32.0) mmol/L Anion Gap (3-11) mmol/L BUN (7-18) mg/dL Creatinine (0.55-1.02) mg/dL Est GFR (CKD-EPI 2020) (mL/min/1.73m2) Glucose (74-106) mg/dL Calcium (8.5-10.1) mg/dL Magnesium (1.8-2.4) mg/dL Total Bilirubin (0.2-1.0) mg/dL AST (15-37) U/L ALT (14-59) U/L Alkaline Phosphatase (46-116) U/L Troponin I (<or=60) ng/L < 50 Total Protein (6.4-8.2) g/dL Albumin (3.4-5.0) g/dL Lipase (16-77) U/L COVID-19 Source Nasopharynx SARS-CoV-2 (PCR) (Negative) Negative Influenza Type A (PCR) (Negative) Negative Influenza Type B (PCR) (Negative) Negative RSV (PCR) (Negative) Negative HPI <SANDY Ba - Last Filed: 10/24/22 08:57> General Date/Time Provider Initiated Documentation: 10/23/22 13:02. HPI Narrative: This 67-year-old female presents with report of chest pain, nausea and vomiting since 7:30 AM. She states that family numbers are sick with stomach bug but she was concerned as the pain was radiating from her back into her chest. She does have a history of longstanding discomfort in her back but states this is different. Denies any diaphoresis or blood in her vomitus. Denies any diarrhea or blood in her stool. Related Data Home Medications Medication Instructions Recorded Confirmed aspirin-acetaminophen (buffered) 2 tab PO TID PRN 04/04/21 10/11/22 250 mg-250 mg tablet cyanocobalamin (vitamin B-12) 1,000 mcg PO .2x/week 07/25/21 10/11/22 1,000 mcg capsule allopurinol 100 mg tablet 200 mg PO DAILY #180 tabs 08/28/21 10/11/22 acetaminophen 500 mg capsule 1,000 mg PO Q8H PRN PRN fever or 07/04/22 10/11/22 pain #60 caps amlodipine 5 mg tablet 5 mg PO DAILY #90 tabs 07/04/22 10/11/22 aspirin 81 mg tablet,delayed 81 mg PO DAILY #10 tabs 07/04/22 10/11/22 release cholecalciferol (vitamin D3) 25 50 mcg PO DAILY #90 caps 07/04/22 10/11/22 mcg (1,000 unit) capsule coenzyme Q10 300 mg capsule (Co 300 mg PO DAILY #90 caps 07/04/22 10/11/22 Q-10) famotidine 40 mg tablet 40 mg PO DAILY #90 tabs 07/04/22 10/11/22 lisinopril 5 mg tablet 5 mg PO DAILY #90 tabs 07/04/22 10/11/22 magnesium oxide 400 mg PO QHS #90 caps 07/04/22 10/11/22 omega-3 acid ethyl esters 1 gram 2 cap PO DAILY triglycerides 09/03/22 10/11/22 capsule ondansetron HCl 4 mg tablet 4 mg PO Q8H PRN nausea #30 tabs 09/03/22 10/11/22 promethazine 12.5 mg tablet 12.5 mg PO TID PRN #14 tabs 10/23/22 promethazine 12.5 mg tablet 12.5 mg PO TID PRN nausea and 10/23/22 vomiting #14 tabs sucralfate 1 gram tablet (Carafate) 1 g PO BID #10 tabs 10/23/22 sucralfate 1 gram tablet (Carafate) 1 g PO BID #10 tabs 10/23/22 Previous Rx's Medication Instructions Recorded allopurinol 100 mg tablet 200 mg PO DAILY #180 tabs 08/28/21 acetaminophen 500 mg capsule 1,000 mg PO Q8H PRN PRN fever or 07/04/22 pain #60 caps amlodipine 5 mg tablet 5 mg PO DAILY #90 tabs 07/04/22 aspirin 81 mg tablet,delayed 81 mg PO DAILY #10 tabs 07/04/22 release cholecalciferol (vitamin D3) 25 50 mcg PO DAILY #90 caps 07/04/22 mcg (1,000 unit) capsule coenzyme Q10 300 mg capsule (Co 300 mg PO DAILY #90 caps 07/04/22 Q-10) famotidine 40 mg tablet 40 mg PO DAILY #90 tabs 07/04/22 lisinopril 5 mg tablet 5 mg PO DAILY #90 tabs 07/04/22 magnesium oxide 400 mg PO QHS #90 caps 07/04/22 ondansetron HCl 4 mg tablet 4 mg PO Q8H PRN nausea #30 tabs 09/03/22 promethazine 12.5 mg tablet 12.5 mg PO TID PRN #14 tabs 10/23/22 promethazine 12.5 mg tablet 12.5 mg PO TID PRN nausea and 10/23/22 vomiting #14 tabs sucralfate 1 gram tablet (Carafate) 1 g PO BID #10 tabs 10/23/22 sucralfate 1 gram tablet (Carafate) 1 g PO BID #10 tabs 10/23/22 Allergies Allergy/AdvReac Type Severity Reaction Status Date / Time Penicillins Allergy Severe Anaphylaxis Verified 07/04/22 09:01 Sulfa (Sulfonamide Allergy Severe Anaphylaxis Verified 07/04/22 09:01 Antibiotics) tetracycline Allergy Other (See Verified 09/03/22 10:42 Comment) colchicine AdvReac Severe Nausea, Verified 09/03/22 10:42 vomiting Exdmrly-VJB-McW Reductase AdvReac Severe Nausea Unverified 09/03/22 10:42 Inhibitor metronidazole [From Flagyl] AdvReac Intermediate Hives Unverified 09/03/22 10:42 procaine [From Novocain] AdvReac Intermediate Swelling/Ed Unverified 09/03/22 10:42 boris NSAIDS (Non-Steroidal AdvReac Fatty Verified 07/04/22 19:39 Anti-Inflamma liver, CKD, s/p Nephrectomy General Stated Complaint: Nausea/Vomit/Diar ALYSHA: 3 PFSH <SANDY Ba - Last Filed: 10/24/22 08:57> All Active Problems (Updated 10/23/22 @ 18:09 by Danya Herrmann NP) Nausea & vomiting (Acute) Thyroid nodule (Acute) 09/2022 US Hx of gout (Acute) Breast cancer (Chronic) Left Breast, s/p mastectomy (Rt Prophlx)(Unknown Lymph Path). Dr. Lazcano ([facility]). Soft tissue complaint (Acute) Rt chest wall, inner anterior axilla Chest pain in adult (Acute) Rt chest wall, DDx (cellulitis, abscess, scar tissue, myopathy) Vitamin D deficiency (Acute) Anxiety (Chronic ~10/2020) Chronic pain syndrome (Chronic) Hypertension (Chronic ~11/2017) Hypertensive heart and renal disease (Acute ~11/2018) Coronary atherosclerosis (Acute ~10/2019) Mitral valve regurgitation (Chronic ~12/2017) Left ventricular hypertrophy (Acute ~11/2018) Pulmonary emphysema (Acute ~12/2017) Asthma (Chronic) GERD (gastroesophageal reflux disease) (Chronic ~07/2010) Hiatal hernia (Chronic ~05/2019) Diverticular disease of colon (Chronic ~12/2017) Hx with [facility] ([facility]).. Steatosis of liver (Chronic ~12/2017) Past notes recommend abstaining from alcohol, acetaminophen .. Osteopenia (Acute ~12/2016) Multinodular goiter (Acute ~10/2020) 11/06/20 Ultra Sound of thyroid Hypercholesterolemia with hypertriglyceridemia (Chronic) Solitary kidney, acquired (Chronic) Internal derangement of right knee (Acute) COVID-19 vaccine series declined (Acute) Tear of medial meniscus of right knee (Acute) Tear of lateral meniscus of right knee (Acute) Medical History (Updated 10/23/22 @ 18:09 by Danya Herrmann NP) Cannabis dependence (~05/2020) Cobalamin deficiency Constipation (~05/2017) Family history of BRCA gene positive Pt reports BRCA (+) herself. Gout Started with move to [place]; Allopurinol daily. Gouty arthropathy History of ectopic Hypercalcemia (~11/2017) Hyperuricemia (~12/2017) Metabolic acidosis Photophobia (~09/2019) Positional vertigo (~05/2020) Tachycardia (~12/2017) Tobacco dependence (~07/2010) 2019 stopped Urinary incontinence, mixed (~11/2018) Vertiginous syndrome (~06/2010) Surgical History (Updated 07/04/22 @ 19:32 by Yolis Jacobo DO) H/O lumpectomy (~1975) Left wrist H/O right mastectomy (10/23/15) Please MRI continue good prophylactic per pt report, 10/23/2015, [facility]. H/O tubal ligation (~1975) History of bilateral salpingo-oophorectomy (BSO) (08/04/15) History of cholecystectomy (05/12/14) History of endometrial ablation (~2008) History of left mastectomy (02/03/12) bilat..left breast cancer History of nephrectomy (~1955) Hx of cataract extraction S/P breast reconstruction, bilateral (~2015) S/P lumpectomy, left breast (~1987) S/P thyroid biopsy (01/22/19) Family History (Updated 03/07/21 @ 13:47 by Cele Falk LPN) Father Colon cancer Prostate cancer Cancer skin Heart disease Mother Depression Heart disease Brother , at age 52 from Pancreatic Ca Pancreatic cancer Social History (Updated 03/07/21 @ 13:48 by Cele Falk LPN) Smoking/Tobacco Use Status: Former Tobacco Use Quit Date: 01/05/21 Tobacco: How many years used: 30 Smoking risk assessment performed?: Yes Alcohol Intake: never Drug use: Occasionally Substance use type: marijuana Details: Last use of cannabis 08/11/21. Adopted: No Caregiver/Support person: No Foster care: No Household members: spouse and children Housing: house Number of Children: 3 number of grandchildren: 10 Communication Needs: None Education Level: college Details: bachelor's degree Do you need help understanding health information?: Rarely current occupation: retired NURSE Pets and animals: Yes (3) Pets and animals: dog(s) Sexually active: No Do you think of yourself as: straight/heterosexual Current gender identity: female What is your relationship status?: How often do you talk on the phone with friends or family?: three or more times per week How often do you get together with friends or relatives?: three or more times per week Do you belong to any clubs or organized social groups?: no Panel score (0-1 are the most socially isolated patients): 2 What type of physical activity do you participate in: walking and bicycling Duration: 60-90 minutes/day Frequency: daily Lavern/Spiritism: None Special lavern needs: Yes Agree to transfusion: No Seatbelt use: sometimes Helmet use: Yes Helmet use: sometimes Drive intox or ride w/intox [employer] driver: No Do you feel safe at home: Yes Do you feel safe in your relationship?: Yes Exam <SANDY Ba - Last Filed: 10/24/22 08:57> Const General: cooperative, comfortable and no acute distress HENMT Other: moist mucous membranes Eyes Sclera: sclerae normal Chest Chest: normal inspection of the chest Resp Effort & Inspection: normal respiratory effort Auscultation: clear to auscultation bilaterally Cardio Rate: regular rate Rhythm: regular rhythm Other: no palpable chest wall tenderness GI Inspection: normal to inspection Skin General skin exam: no rashes or lesions noted Neuro General: patient alert and patient oriented x3 Extrem Other: neurovascularly intact Course <SANDY Ba - Last Filed: 10/24/22 08:57> Vital Signs Vital signs: Vital Signs Temperature 36.4 C L 10/23/22 12:24 Pulse 65 10/23/22 12:24 Respiratory Rate 18 10/23/22 12:24 Pulse Oximetry 100 10/23/22 12:24 Temperature 36.4 C L 10/23/22 12:24 Temperature Source Tympanic 10/23/22 12:24 Pulse 70 10/23/22 14:46 Pulse 70 10/23/22 14:47 Respiratory Rate 23 10/23/22 14:47 Respiratory Effort Normal 10/23/22 12:28 Blood Pressure 122/61 10/23/22 14:46 Blood Pressure Mean 75 10/23/22 14:46 Pulse Oximetry 100 10/23/22 15:00 Oxygen Delivery Method Room Air 10/23/22 12:24 Oxygen Flow Rate 0 10/23/22 12:24 Pain Level 9 10/23/22 12:24 Lab/Test Results Lab/Test Results: Laboratory Tests Range/Units 10/23/22 10/23/22 10/23/22 13:10 13:10 13:10 WBC (4.4-10.8) 10^3/uL 7.29 RBC (3.93-5.22) 10^6/uL 4.82 Hgb (11.2-15.7) g/dL 14.0 Hct (36.0-46.0) % 42.1 MCV (80-95) fL 87 MCH (27.0-33.0) pg 29.0 MCHC (32.0-36.0) % 33.3 RDW (11.7-14.6) % 14.6 Plt Count (130-400) 10^3/uL 278 MPV (8.0-11.0) fL 9.6 Immature Gran % 0.3 Neutrophils % 83.4 Lymphocytes % 13.7 Monocytes % 1.8 Eosinophils % 0.0 Basophils % 0.8 Nucleated RBC % (0.0-0.3) % 0.0 Absolute Neutrophils (1.2-6.7) 10^3/uL 6.08 Absolute Lymphocytes (1.2-3.4) 10^3/uL 1.00 L Absolute Monocytes (0.1-0.8) 10^3/uL 0.13 Absolute Eosinophils (0.0-0.7) 10^3/uL 0.00 Absolute Basophils (0.0-0.2) 10^3/uL 0.06 Sodium (136-145) mmol/L 143 Potassium (3.5-5.1) mmol/L 3.9 Chloride (98-107) mmol/L 106 Carbon Dioxide (21.0-32.0) mmol/L 25.6 Anion Gap (3-11) mmol/L 11.4 H BUN (7-18) mg/dL 17 Creatinine (0.55-1.02) mg/dL 1.1 H Est GFR (CKD-EPI 2020) (mL/min/1.73m2) 54.39 Glucose (74-106) mg/dL 107 H Calcium (8.5-10.1) mg/dL 9.8 Magnesium (1.8-2.4) mg/dL 2.0 Total Bilirubin (0.2-1.0) mg/dL 0.4 AST (15-37) U/L 17 ALT (14-59) U/L 28 Alkaline Phosphatase (46-116) U/L 113 Troponin I (<or=60) ng/L < 50 Total Protein (6.4-8.2) g/dL 7.6 Albumin (3.4-5.0) g/dL 3.9 Lipase (16-77) U/L 48 COVID-19 Source SARS-CoV-2 (PCR) (Negative) Influenza Type A (PCR) (Negative) Influenza Type B (PCR) (Negative) RSV (PCR) (Negative) Range/Units 10/23/22 14:55 WBC (4.4-10.8) 10^3/uL RBC (3.93-5.22) 10^6/uL Hgb (11.2-15.7) g/dL Hct (36.0-46.0) % MCV (80-95) fL MCH (27.0-33.0) pg MCHC (32.0-36.0) % RDW (11.7-14.6) % Plt Count (130-400) 10^3/uL MPV (8.0-11.0) fL Immature Gran % Neutrophils % Lymphocytes % Monocytes % Eosinophils % Basophils % Nucleated RBC % (0.0-0.3) % Absolute Neutrophils (1.2-6.7) 10^3/uL Absolute Lymphocytes (1.2-3.4) 10^3/uL Absolute Monocytes (0.1-0.8) 10^3/uL Absolute Eosinophils (0.0-0.7) 10^3/uL Absolute Basophils (0.0-0.2) 10^3/uL Sodium (136-145) mmol/L Potassium (3.5-5.1) mmol/L Chloride (98-107) mmol/L Carbon Dioxide (21.0-32.0) mmol/L Anion Gap (3-11) mmol/L BUN (7-18) mg/dL Creatinine (0.55-1.02) mg/dL Est GFR (CKD-EPI 2020) (mL/min/1.73m2) Glucose (74-106) mg/dL Calcium (8.5-10.1) mg/dL Magnesium (1.8-2.4) mg/dL Total Bilirubin (0.2-1.0) mg/dL AST (15-37) U/L ALT (14-59) U/L Alkaline Phosphatase (46-116) U/L Troponin I (<or=60) ng/L Total Protein (6.4-8.2) g/dL Albumin (3.4-5.0) g/dL Lipase (16-77) U/L COVID-19 Source Nasopharynx SARS-CoV-2 (PCR) (Negative) Negative Influenza Type A (PCR) (Negative) Negative Influenza Type B (PCR) (Negative) Negative RSV (PCR) (Negative) Negative Sign Out <SANDY Ba - Last Filed: 10/24/22 08:57> Sign Out Data: Sign Out Comment: pending repeat troponin and EKG, urinalysis Last updated by Casandra Koenig PA at 10/23/22 16:28
--- NOTE | 2022-10-23 16:45 | RT.EKG_ITS ---
APPROVED REPORT Exam: Resting ECG Reason for Exam: chest pain Patient Location: E HR:50 bpm ECG Measurements Heart Rate 50 AXIS VA 128 P -1 QRSd 94 QRS 84 QT 450 T 64 QTc 411 Conclusion Sinus bradycardia...rate< 60 sinus sadiq, normal axis, non ischemic
[2022-10-23 17:08] LABS: Troponin I < 50 ng/L (<or=60)
[2022-10-23] MEDS: LORazepam 2 MG/ML VIAL 0.5 MG IVP (17:39)
== END 2022-10-23 18:41 | disposition home or self-care (01) ==
PROVIDERS: Physician Assistant; Emergency Provider Registered Nurse Emergency; PCP Student in an Organized Health Care Education/Training Program
DX: R11.2 Nausea with vomiting, unspecified (principal); R07.9 Chest pain, unspecified; M54.89 Other dorsalgia; R10.9 Unspecified abdominal pain; Z85.3 Personal history of malignant neoplasm of breast
CPT/HCPCS: 80053; 83690; 87637; 93005; 96361; 96374; 96375; 99285; 71045; 72128; 74176; 83735; 84484; 85025; 93010; 99284; J1200; J2060; J2270; J2765

== ENCOUNTER 2022-12-03 01:31 | Outpatient (CLI) | payer OTHER, SELFPAY ==
--- NOTE | 2022-12-03 07:15 | DI.US_ITS ---
Exam(s) US NEEDLE LOCAL OTHER WO RAD EXAM: thyroid nodule -TR4,ULTRASOUND GUIDED BX, E04.1 COMPARISON: No exams were available for comparison TECHNIQUE: Ultrasound performed using standard protocol. FINDINGS: Sonography was provided for Dr. Aj during the performance of a ultrasound-guided thyroid biopsy. Please refer to the procedure report for complete details. DATA REPOSITORY:
--- NOTE | 2022-12-03 12:30 | PAPNONF_PTH ---
PATIENT: Cele Rahman LOC: [facility] U#:[id number] AGE/SX: 67/F ROOM: RE12/03/[address]: Daniel Aj MD : [id number] BED: DIS: 12/03/2022 SPEC #: [id number] RECD: 12/03/22 13:10 STATUS: HANK REQ #: [id number] CHIARA: 12/03/22 12:[address]: Daniel Aj DEPT: [facility] Cytology RECD BY: Casandra Martinez ENTERED: 12/03/22 13:10 SP TYPE: PAPSABIF SARAY DR: Yolis Jacobo DO Tissues: 1 - BODY FLUID CYTO-FINE NEEDLE ASPIRATE-[facility] Procedures: BODY FLUID CYTO-FINE NEEDLE ASPIRATE-[facility] Comments: [id number] (PATH FNA CONSULT) (REFRIGERATED)
--- NOTE | 2022-12-03 14:08 | W.PROCNOTE ---
Date of service: 12/03/22 Time of Service: 14:08 Procedure Note Date of procedure: 12/03/22 Procedure: Ultrasound-guided FNA, left thyroid nodule, inferior pole, pathology presen Surgeon/Proceduralist/Physician: Daniel Aj Procedure Diagnosis: Left inferior pole thyroid nodule, 1.9 cm, meeting criteria for biopsy Procedure Indications: The patient has a left-sided inferior pole thyroid nodule meeting criteria for biopsy. Options were explained to the patient regarding further management. She elected to undergo FNA. Consent was filled out and signed. Risks including bleeding, infection, failure to obtain an answer, and need for further treatment were discussed at length. The below was then performed. Procedure Description: The patient was prepped and draped in appropriate fashion. Her neck was extended and the ultrasound used to localize the left-sided thyroid nodule at the inferior pole. 1% lidocaine with 1/100,000 epinephrine was injected in the skin and subcutaneous tissues over the nodule, and then multiple passes were made with a 25-gauge needle. Large numbers of macrophages were withdrawn as well as cystic content's. Specimen on slides revealed 5 clusters of cells, and an additional CytoLyt was prepared. 2 additional passes were made for Afirma in case it was deemed necessary. After ensuring adequate hemostasis, sterile dressing was applied and the patient was allowed to sit up, and then ambulate. Her vital signs remained stable. She tolerated the procedure without difficulty. She will remove the bandage tonight. She will not replace it. She will call with any signs of infection. She will call if she does not hear from me within 1 week with regard to pathology results. Further care will depend upon the findings. She had no further questions. She is comfortable with the plan.
== END 2022-12-03 01:51 ==
PROVIDERS: PCP Student in an Organized Health Care Education/Training Program; Visit Provider Otolaryngology
DX: E04.1 Nontoxic single thyroid nodule (principal)
CPT/HCPCS: 10005; 76942; 88104

== ENCOUNTER 2023-01-07 01:11 | Outpatient (CLI) | payer OTHER, SELFPAY ==
--- NOTE | 2023-01-07 07:30 | DI.MRI_ITS ---
Exam(s) MR THORACIC SPINE WO EXAM: MR THORACIC SPINE WO CLINICAL HISTORY: back pain with numbness,back injury, back pain. TECHNIQUE: Multiplanar multisequence MRI of the Thoracic spine was performed. COMPARISON: CR XR THORACIC SPINE COMPLETE from 01/07/2023 FINDINGS: Bones: The vertebral body heights are well maintained. Small endplate osteophytes are present throug hout the thoracic spine. Alignment is satisfactory. The signal characteristics are unremarkable. Cord: The thoracic cord is normal size and signal intensity. No intrinsic cord lesion is present. Discs: There are small disc bulges seen in the midthoracic spine. There is no central spinal canal o r neural foraminal stenosis present. Soft tissues: Normal. IMPRESSION: 1. Degenerative changes in the thoracic spine. Small disc bulges seen in the midthoracic spine level s. 2. No central spinal canal or neural foraminal stenosis is present in the thoracic spine. 3. Normal spinal cord appearance. DATA REPOSITORY:
--- NOTE | 2023-01-07 09:30 | DI.RAD_ITS ---
Exam(s) XR CERVICAL SP COMP W FLEX/EXT EXAM: XR CERVICAL SP COMP W FLEX/EXT CLINICAL HISTORY: evaluate spine curvature and vert spacing,neck injury,[id number]. TECHNIQUE: 2D digital imaging was performed. Seven images were obtained. AP, odontoid, lateral, flex ion, extension and bilateral oblique images were obtained. COMPARISON: No exams were available for comparison FINDINGS: The odontoid is intact. The lateral masses are well aligned. There is normal alignment of the cervi benoit spine. There are endplate osteophytes and disc space narrowing at C5-6 and C6-C7. Degenerative c hanges of the facets are seen. No acute fracture or subluxation is present. [id number] neural foraminal narrowing is seen bilaterally at C6-C7, on the right at C5-C6 and on the left at C4-C5. The cervical thoracic junction is well maintained. The prevertebral soft tissues are unremarkable. No significant subluxation is seen with flexion or extension. Lung apices are clear. IMPRESSION: Moderate cervical spondylosis. DATA REPOSITORY: RADIATION DOSE DELIVERED:
--- NOTE | 2023-01-07 09:30 | DI.RAD_ITS ---
Exam(s) XR THORACIC SPINE COMPLETE EXAM: XR THORACIC SPINE COMPLETE CLINICAL HISTORY: evaluate spine curvature and vert spacing,h/o back injury,dorsalgia,radicul. TECHNIQUE: 2D digital imaging was performed of the thoracic spine. Three views were obtained. AP, swimmer's and lateral views were obtained. COMPARISON: No exams were available for comparison FINDINGS: BONES: There is no fracture or destructive lesion. There are small endplate osteophytes and mild disc space narrowing seen in thoracic spine, particularly the midthoracic spine. DISKS:Alignment is within normal limits. Mild disc space narrowing is seen in the midthoracic spine. SOFT TISSUE: Visualized lungs are clear. IMPRESSION: Mild degenerative changes in the thoracic spine. DATA REPOSITORY: RADIATION DOSE DELIVERED:
--- NOTE | 2023-01-07 09:31 | DI.RAD_ITS ---
Exam(s) XR LUMBAR SPINE COMP W FLEX/EX EXAM: XR LUMBAR SPINE COMP W FLEX/EX CLINICAL HISTORY: evaluate spine curvature and vert spacing,back pain with numbness,m54.13,g6. TECHNIQUE: 2D digital imaging was performed of the lumbar spine. Seven images were obtained. AP, l ateral, right oblique, left oblique, flexion, extension and L5-S1 spot views were obtained. COMPARISON: CR XR lumbar spine 2-3V from 10/05/2018 FINDINGS: BONES: No fracture or destructive lesion. Endplate osteophytes are seen at multiple levels of the lum bar spine. Degenerative changes of the facets are seen at L4-5 and L5-S1. DISKS: There is disc space narrowing present at L2-L3 and L5-S1. ALIGNMENT: Lumbar spinal alignment is within normal limits. No spondylolysis or spondylolisthesis. N o change in alignment is seen with flexion or extension. SOFT TISSUE: There are surgical clips in the right upper quadrant of the abdomen which may reflect pr ior cholecystectomy. IMPRESSION: Moderate degenerative changes in the lumbar spine. DATA REPOSITORY: RADIATION DOSE DELIVERED:
== END 2023-01-07 01:31 ==
LOC: DI 01:12
PROVIDERS: PCP Student in an Organized Health Care Education/Training Program; Visit Provider Student in an Organized Health Care Education/Training Program
DX: S19.9XXA Unspecified injury of neck, initial encounter; S49.92XA Unspecified injury of left shoulder and upper arm, initial encounter; Z87.828 Personal history of other (healed) physical injury and trauma; M47.15 Other spondylosis with myelopathy, thoracolumbar region; M47.12 Other spondylosis with myelopathy, cervical region
CPT/HCPCS: 72114; 72052; 72072; 72146

== ENCOUNTER 2023-03-07 01:19 | Outpatient (CLI) | payer OTHER, SELFPAY ==
[2023-03-11 14:21] LABS: Apolipoprotein B, Serum 149 mg/dL (48-124); Beta VLDL Cholesterol Not Detected mg/dL (<15); Beta VLDL Triglycerides Not Detected mg/dL (<15); Cholesterol, Total, CDC 257 mg/dL; Chylomicron Cholesterol Not Detected; Chylomicron Triglycerides Not Detected; HDL Cholesterol, CDC 37 mg/dL (>=50); LDL Cholesterol 178 mg/dL; LDL Triglycerides 70 mg/dL (<=50); Lp(a) Cholesterol <5 mg/dL (<5); LpX Not detected; Triglycerides, CDC 204 mg/dL; VLDL Cholesterol 42 mg/dL (<30); VLDL Triglycerides 114 mg/dL (<120)
== END 2023-03-07 01:20 | disposition home or self-care (01) ==
LOC: LOS 01:19
PROVIDERS: PCP Student in an Organized Health Care Education/Training Program; Visit Provider Student in an Organized Health Care Education/Training Program
DX: E78.2 Mixed hyperlipidemia (principal); I25.10 Atherosclerotic heart disease of native coronary artery without angina pectoris; K21.9 Gastro-esophageal reflux disease without esophagitis; K76.0 Fatty (change of) liver, not elsewhere classified; Z82.49 Family history of ischemic heart disease and other diseases of the circulatory system; Z83.42 Family history of familial hypercholesterolemia
CPT/HCPCS: 36415; 80061; 82172; 82664

== ENCOUNTER 2023-09-10 08:17 | Emergency (ER) | payer OTHER, SELFPAY ==
--- NOTE | 2023-09-10 08:30 | DI.CT_ITS ---
Exam(s) CT FACIAL WO EXAM: CT FACIAL WO CLINICAL HISTORY: fall, facial swelling, nasal bridge injury. TECHNIQUE: Imaging Protocol: Axial computed tomography images with coronal and sagittal reformatted images were created and reviewed CONTRAST MATERIAL: Noncontrast- COMPARISON: No exams were available for comparison FINDINGS: Facial Bones: No fracture is noted in the facial bones. Sinuses and Mastoids: Unremarkable. Globes, extraocular muscles, optic nerves and retrobulbar fat: Normal. Upper aerodigestive tract: Normal. Mandible and bilateral temporomandibular joints: Degenerative changes in the temporomandibular joint s, right greater than left. Soft tissues: Mild swelling over nasal bridge. IMPRESSION: No evidence of fracture/dislocation in facial bones. RADIATION DOSE DELIVERED: 426.43mGy.cm Total DLP DATA REPOSITORY: All CT scans at this facility are submitted to the National Radiology Data Registry (NRDR) Dose Index Registry (DIR) with the [employer] ([employer]). RADIATION OPTIMIZATION: All CT scans at this facility use at least one of these dose optimization te chniques: automated exposure control; mA and/or kV adjustment per patient size (includes targeted exa ms where dose is matched to clinical indication); or iterative reconstruction.
[2023-09-10 08:31] VITALS: BP 140/70; PULSE 95; RESP 16; TEMP 36.1; O2SAT 97
[2023-09-10 08:53] VITALS: RESP 18
--- NOTE | 2023-09-10 09:03 | W.ED.GENAD ---
HPI General Date/Time Provider Initiated Documentation: 09/10/23 08:40. HPI Narrative: 68 year-old female presents to ED today by POV/ambulating with a chief complaint of fall, facial swelling, mild headache with onset of fall two days ago. Quality described as small abrasion to bridge of her nose- now having swelling and redness to cheeks/lower eyelid areas, with some yellow crusting on the small abrasion, no radiation to slurred speech, visual changes, hemiparesis, fever, nausea, weakness. Denies LOC, vomiting post-fall. Severity is described as 4-5/10. Palliating factors include nothing specific attempted. Provoking factors include nothing specific. Patient not anticoagulated. Related Data Home Medications Medication Instructions Recorded Confirmed aspirin-acetaminophen (buffered) 2 tab PO TID PRN 04/04/21 08/29/23 250 mg-250 mg tablet acetaminophen 500 mg capsule 1,000 mg (2 x 500 mg) PO Q8H PRN 07/04/22 08/29/23 PRN fever or pain #60 caps coenzyme Q10 300 mg capsule (Co 300 mg PO DAILY #90 caps 07/04/22 08/29/23 Q-10) cholecalciferol (vitamin D3) 25 50 mcg (2 x 25 mcg (1,000 unit)) 10/30/22 08/29/23 mcg (1,000 unit) capsule PO DAILY #90 caps magnesium oxide 400 mg PO QHS #90 caps 10/30/22 08/29/23 omega-3 acid ethyl esters 1 gram 2 cap PO DAILY triglycerides #180 10/31/22 08/29/23 capsule caps famotidine 40 mg tablet 40 mg PO DAILY #90 tabs 03/07/23 08/29/23 sucralfate 1 gram tablet (Carafate) 1 g PO BID PRN gastric pain #20 05/28/23 08/29/23 tabs amlodipine 2.5 mg tablet 2.5 mg PO DAILY 90 days #90 tabs 07/07/23 08/29/23 lisinopril 5 mg tablet 5 mg PO DAILY 90 days #90 tabs 07/07/23 08/29/23 ondansetron HCl 4 mg tablet See Rx Instructions .Route 07/07/23 08/29/23 .COMPLEX #30 tabs icosapent ethyl 1 gram capsule 2 g (2 x 1 gram) PO BID #120 caps 07/16/23 08/29/23 (Vascepa) tramadol 50 mg tablet 50 mg PO DAILY PRN severe pain #20 07/16/23 08/29/23 tabs clindamycin HCl 150 mg capsule 450 mg (3 x 150 mg) PO TID 09/10/23 cellulitis 10 days #90 caps Previous Rx's Medication Instructions Recorded acetaminophen 500 mg capsule 1,000 mg (2 x 500 mg) PO Q8H PRN 07/04/22 PRN fever or pain #60 caps coenzyme Q10 300 mg capsule (Co 300 mg PO DAILY #90 caps 07/04/22 Q-10) cholecalciferol (vitamin D3) 25 50 mcg (2 x 25 mcg (1,000 unit)) 10/30/22 mcg (1,000 unit) capsule PO DAILY #90 caps magnesium oxide 400 mg PO QHS #90 caps 10/30/22 omega-3 acid ethyl esters 1 gram 2 cap PO DAILY triglycerides #180 10/31/22 capsule caps famotidine 40 mg tablet 40 mg PO DAILY #90 tabs 03/07/23 sucralfate 1 gram tablet (Carafate) 1 g PO BID PRN gastric pain #20 05/28/23 tabs amlodipine 2.5 mg tablet 2.5 mg PO DAILY 90 days #90 tabs 07/07/23 lisinopril 5 mg tablet 5 mg PO DAILY 90 days #90 tabs 07/07/23 ondansetron HCl 4 mg tablet See Rx Instructions .Route 07/07/23 .COMPLEX #30 tabs icosapent ethyl 1 gram capsule 2 g (2 x 1 gram) PO BID #120 caps 07/16/23 (Vascepa) tramadol 50 mg tablet 50 mg PO DAILY PRN severe pain #20 07/16/23 tabs clindamycin HCl 150 mg capsule 450 mg (3 x 150 mg) PO TID 09/10/23 cellulitis 10 days #90 caps Allergies Allergy/AdvReac Type Severity Reaction Status Date / Time Penicillins Allergy Severe Anaphylaxis Verified 07/16/23 15:09 Sulfa (Sulfonamide Allergy Severe Anaphylaxis Verified 07/16/23 15:09 Antibiotics) tetracycline Allergy Other (See Verified 07/16/23 15:09 Comment) colchicine AdvReac Severe Nausea, Verified 07/16/23 15:09 vomiting Pptyrez-ZVA-CjI Reductase AdvReac Severe Nausea Verified 07/16/23 15:09 Inhibitor metronidazole [From Flagyl] AdvReac Intermediate Hives Verified 07/16/23 15:09 procaine [From Novocain] AdvReac Intermediate Swelling/Ed Verified 07/16/23 15:09 boris NSAIDS (Non-Steroidal AdvReac Fatty Verified 07/16/23 15:09 Anti-Inflamma liver, CKD, s/p Nephrectomy General Stated Complaint: FacialProb ALYSHA: 3 Review of Systems All systems reviewed & are unremarkable except as noted in HPI and below Exam Narrative Exam Narrative: GENERAL APPEARANCE: Well-nourished, non-toxic, awake and alert, atraumatic, no acute distress. SKIN: Warm, pink, dry, intact, without rashes/lesions/ulcerations. HEAD: Normocephalic, normal hair distribution for gender/age. Minor <0.5cm abrasion with yellow crust to nasal bridge, spreading pink erythema to lower eyelids and cheeks, nares patent, no fluctuant swelling, neg Ash's sign, consistent with facial cellulitis EYES: Pupils PERRLA, EOMs intact without nystagmus, normal conjunctiva, no exudates on lids/lashes. ENT: Nares patent, no circumoral cyanosis, no facial swelling NECK: Supple, trachea midline, painless cervical ROM. LUNGS/CHEST: Non-labored respirations, normal A/P diameter, symmetrical expansion, no chest wall deformity HEART (CV/PV): Regular rate, no peripheral edema, no JVD. ABDOMEN: Soft, non-distended, no guarding, no tenderness. MSK: Normal ROM, no swelling/deformity to bilateral UEs or LEs, moving all extremities without weakness, no cyanosis, spine midline without tenderness, normal curvature. NEURO: Mental Status AAOx4 - alert to person, place, time, events No facial droop, no forehead involvement. Motor: No focal weakness - strength 5/5 in bilateral UEs and LEs, proximal and distal, symmetric. Sensory: sensation intact to light touch globally. Gait normal: patient ambulated without ataxia into ED room. PSYCH: euthymic, cooperative, pleasant, appropriate speech Course Vital Signs Vital signs: Vital Signs Temperature 36.1 C L 09/10/23 08:31 Pulse 95 H 09/10/23 08:31 Respiratory Rate 16 09/10/23 08:31 Blood Pressure 140/70 09/10/23 08:31 Pulse Oximetry 97 09/10/23 08:31 Temperature 36.1 C L 09/10/23 08:31 Temperature Source Tympanic 09/10/23 08:31 Pulse 95 H 09/10/23 08:31 Respiratory Rate 18 09/10/23 08:53 Respiratory Effort Normal 09/10/23 08:53 Respiratory Depth Normal 09/10/23 08:53 Blood Pressure 140/70 09/10/23 08:31 Blood Pressure Position Sitting 09/10/23 08:31 Pulse Oximetry 97 09/10/23 08:31 Oxygen Delivery Method Room Air 09/10/23 08:31 Oxygen Flow Rate 0 09/10/23 08:31 Pain Level 7 09/10/23 08:31 Comment tylenol at 5am 09/10/23 08:31 Medical Decision Making This dictation utilizes [id number] dictation software and may contain unedited grammatical errors. 68 y/o F presents to ED today with a chief complaint of fall 2 days ago, mild headache, facial swelling and erythema. Has a small abrasion on the bridge of her nose and spreading redness and swelling to cheeks/lower eyelids, denies fever/nausea, no neurologic abnormality. Patients' medical history: CAD, gout, positional vertigo. Family and social history: noncontributory, lives at home. Pertinent exam findings / vital signs include minor abrasion to bridge of nose with spreading erythema to the lower eyelids consistent with mild cellulitis without abscess, neurologically intact. Differential / pathologies of concern include concussion syndrome, cellulitis. Diagnostic studies of: -CT facial bones without contrast, CBC, CMP -CT facial bones shows no acute fracture -CBC shows no leukocytosis, hemoglobin stable -CMP benign. Interventions of: -Tylenol, outpatient Rx for cellulitis ED Course/Assessment/Plan: 68-year-old female suffered a fall 2 days ago and has an abrasion to the bridge of her nose, she has spreading erythema out from the area consistent with a mild cellulitis, has a mild headache but no neurological deficits and no deterioration over 2 days making intracranial hemorrhage of any degree highly unlikely. I counseled the patient on likely infected abrasion to the bridge of her nose and started her on clindamycin outpatient due to penicillin allergies as well as tetracycline allergies, covering for MRSA due to the honey colored crust on her minor nasal bridge abrasion, counseled on taking adequate dosing of Tylenol for possible mild concussion. Findings not consistent with intracranial hemorrhage, abscess, orbit fracture. Disposition of Facial Cellulitis. Patient verbalized understanding of the plan and return to ED criteria and engaged in shared decision making. Medical Records Medical records reviewed: Yes I reviewed the patient's medical records. Imaging Data Radiologic Study: Attestation: I personally reviewed and interpreted this imaging study as follows: Imaging: CT Scan Radiologist's impression: EXAM: CT FACIAL WO CLINICAL HISTORY: fall, facial swelling, nasal bridge injury. TECHNIQUE: Imaging Protocol: Axial computed tomography images with coronal and sagittal reformatted images were created and reviewed CONTRAST MATERIAL: Noncontrast- COMPARISON: No exams were available for comparison FINDINGS: Facial Bones: No fracture is noted in the facial bones. Sinuses and Mastoids: Unremarkable. Globes, extraocular muscles, optic nerves and retrobulbar fat: Normal. Upper aerodigestive tract: Normal. Mandible and bilateral temporomandibular joints: Degenerative changes in the temporomandibular joints, right greater than left. Soft tissues: Mild swelling over nasal bridge. IMPRESSION: No evidence of fracture/dislocation in facial bones. Lab Data Lab results reviewed: Yes I reviewed the patient's lab results. Labs: Laboratory Tests Range/Units 09/10/23 09:00 WBC (4.4-10.8) 10^3/uL 10.64 RBC (3.93-5.22) 10^6/uL 4.86 Hgb (11.2-15.7) g/dL 13.6 Hct (36.0-46.0) % 41.7 MCV (80-95) fL 86 MCH (27.0-33.0) pg 28.0 MCHC (32.0-36.0) % 32.6 RDW (11.7-14.6) % 13.6 Plt Count (130-400) 10^3/uL 281 MPV (8.0-11.0) fL 9.4 Immature Gran % 0.5 Neutrophils % 71.9 Lymphocytes % 20.6 Monocytes % 5.9 Eosinophils % 0.5 Basophils % 0.6 Nucleated RBC % (0.0-0.3) % 0.0 Absolute Neutrophils (1.2-6.7) 10^3/uL 7.66 H Absolute Lymphocytes (1.2-3.4) 10^3/uL 2.19 Absolute Monocytes (0.1-0.8) 10^3/uL 0.63 Absolute Eosinophils (0.0-0.7) 10^3/uL 0.05 Absolute Basophils (0.0-0.2) 10^3/uL 0.06 Sodium (136-145) mmol/L 136 Potassium (3.5-5.1) mmol/L 3.9 Chloride (98-107) mmol/L 100 Carbon Dioxide (21.0-32.0) mmol/L 26.8 Anion Gap (3-11) mmol/L 9.2 BUN (7-18) mg/dL 17 Creatinine (0.55-1.02) mg/dL 1.0 Est GFR (CKD-EPI 2020) (mL/min/1.73m2) 60.61 Glucose (74-106) mg/dL 101 Calcium (8.5-10.1) mg/dL 10.0 Total Bilirubin (0.2-1.0) mg/dL 0.4 AST (15-37) U/L 20 ALT (14-59) U/L 28 Alkaline Phosphatase (46-116) U/L 149 H Total Protein (6.4-8.2) g/dL 7.7 Albumin (3.4-5.0) g/dL 3.2 L Quality:SDOH Health Related Social Needs: No Data to Display PFSH All Active Problems (Updated 09/10/23 @ 10:56 by SANDY Perez) Facial cellulitis (Acute) Chronic abdominal pain (Acute) Philip type 2a hyperlipoproteinemia (Acute) Nausea (Acute) Vomiting (Acute) Radiculopathy of cervicothoracic region (Acute) Neuropathy (Acute) Injury of left deltoid region (Acute) Hx of back injury (Acute) Back pain associated with peripheral numbness (Acute) Thyroid nodule (Acute) 09/2022 US. 12/04/22 US fine needle aspiration of left thyroid nodule (ordering: Dr. Aj) -paucicellular specimen with features compatible with benign follicular nodule.-cyst contents. activity note from 12/05/22: Dr Aj has notified pt of results and recommends repeat f/u US 1 year. Hx of gout (Acute) Breast cancer (Chronic) Left Breast, s/p mastectomy (Rt Prophlx)(Unknown Lymph Path). Dr. Lazcano ([facility]). Soft tissue complaint (Acute) Rt chest wall, inner anterior axilla Chest pain in adult (Acute) Rt chest wall, DDx (cellulitis, abscess, scar tissue, myopathy) Vitamin D deficiency (Acute) Anxiety (Chronic ~10/2020) Chronic pain syndrome (Chronic) Hypertension (Chronic ~11/2017) Pulmonary emphysema (Acute ~12/2017) Asthma (Chronic) GERD (gastroesophageal reflux disease) (Chronic ~07/2010) Manageable, 2021- .. with N/V 02/2023 Diverticular disease of colon (Chronic ~12/2017) Hx with [facility]CP[facility] ([facility]).. Steatosis of liver (Chronic ~12/2017) Past notes recommend abstaining from alcohol, acetaminophen .. Osteopenia (Acute ~12/2016) Hypercholesterolemia with hypertriglyceridemia (Chronic) Cyndie Hyperchol; Apolipoprotein B (+) Solitary kidney, acquired (Chronic) Internal derangement of right knee (Acute) COVID-19 vaccine series declined (Acute) Tear of medial meniscus of right knee (Acute) Tear of lateral meniscus of right knee (Acute) Medical History (Updated 09/10/23 @ 10:56 by SANDY Perez) Coronary atherosclerosis (~10/2019) Gout Started with move to [place]; Allopurinol daily. Family history of BRCA gene positive Pt reports BRCA (+) herself. Multinodular goiter (~10/2020) 11/06/20 Ultra Sound of thyroid Hyperuricemia (~12/2017) Urinary incontinence, mixed (~11/2018) Tachycardia (~12/2017) Constipation (~05/2017) Hiatal hernia (~05/2019) Left ventricular hypertrophy (~11/2018) Mitral valve regurgitation (~12/2017) Hypertensive heart and renal disease (~11/2018) Vertiginous syndrome (~06/2010) Positional vertigo (~05/2020) Photophobia (~09/2019) Tobacco dependence (~07/2010) 2019 stopped Cannabis dependence (~05/2020) Metabolic acidosis Gouty arthropathy Hypercalcemia (~11/2017) Cobalamin deficiency History of ectopic Surgical History (Updated 07/04/22 @ 19:32 by Yolis Jacobo, ) H/O tubal ligation (~1975) H/O lumpectomy (~1975) Left wrist S/P lumpectomy, left breast (~1987) History of left mastectomy (02/03/12) bilat..left breast cancer History of cholecystectomy (05/12/14) History of bilateral salpingo-oophorectomy (BSO) (08/04/15) S/P breast reconstruction, bilateral (~2015) H/O right mastectomy (10/23/15) Please MRI continue good prophylactic per pt report, 10/23/2015, Manda. History of endometrial ablation (~2008) S/P thyroid biopsy (01/22/19) History of nephrectomy (~1955) Hx of cataract extraction Family History (Updated 03/07/21 @ 13:47 by Cele Falk LPN) Father Colon cancer Prostate cancer Cancer skin Heart disease Mother Depression Heart disease Brother , at age 52 from Pancreatic Ca Pancreatic cancer Social History (Updated 12/05/22 @ 14:39 by Reena Painting RN) Smoking/Tobacco Use Status: Former Tobacco Use Quit Date: 01/05/21 Tobacco: How many years used: 30 Smoking risk assessment performed?: Yes Alcohol Intake: never Drug use: Occasionally Substance use type: marijuana Details: Last use of cannabis 08/11/21. Adopted: No Caregiver/Support person: No Foster care: No Household members: spouse, family and children Housing: house Number of Children: 3 number of grandchildren: 8 Communication Needs: None Education Level: college Details: bachelor's degree Do you need help understanding health information?: Rarely current occupation: retired NURSE Pets and animals: Yes (3) Pets and animals: dog(s) Sexually active: No Do you think of yourself as: straight/heterosexual Current gender identity: female What is your relationship status?: How often do you talk on the phone with friends or family?: once per week How often do you get together with friends or relatives?: once per week Do you belong to any clubs or organized social groups?: no Panel score (0-1 are the most socially isolated patients): 1 What type of physical activity do you participate in: walking and bicycling Duration: 60-90 minutes/day Frequency: daily Lavern/Congregational: None Special lavern needs: Yes Agree to transfusion: No Seatbelt use: sometimes Helmet use: Yes Helmet use: sometimes Drive intox or ride w/intox piledriver carpenter: No Do you feel safe at home: Yes Do you feel safe in your relationship?: Yes Discharge Plan Disposition Patient Disposition: Home Condition: Stable Discharge Details Clinical Impression: Facial cellulitis Primary Care Provider: Yolis Jacobo ED Provider: Chava Babb Home Meds and New Rx's Prescriptions: New clindamycin HCl 150 mg capsule 450 mg PO TID 10 Days Qty: 90 0RF Continued cholecalciferol (vitamin D3) 25 mcg (1,000 unit) capsule 50 mcg PO DAILY Qty: 90 3RF magnesium oxide 400 mg magnesium capsule 400 mg PO QHS Qty: 90 3RF Rx Instructions: Take qHs for sleep, calm, muscle cramping famotidine 40 mg tablet 40 mg PO DAILY Qty: 90 3RF lisinopril 5 mg tablet 5 mg PO DAILY 90 Days Qty: 90 4RF Rx Instructions: Take one tablet daily by mouth. amlodipine 2.5 mg tablet 2.5 mg PO DAILY 90 Days Qty: 90 4RF Rx Instructions: Take one tablet daily by mouth tramadol 50 mg tablet 50 mg PO DAILY PRN (Reason: severe pain) Qty: 20 2RF Rx Instructions: Continue for back pain, with monitoring icosapent ethyl [Vascepa] 1 gram capsule 2 g PO BID Qty: 120 1RF Hold Instructions: Formulary/Insurance Rx Instructions: Trial, start with 1 tab twice daily x2 days - discuss with clinical pharmacist sucralfate [Carafate] 1 gram tablet 1 g PO BID PRN (Reason: gastric pain) Qty: 20 1RF Rx Instructions: Trial again, 1-2 per day as needed for gastritis acetaminophen 500 mg capsule 1,000 mg PO Q8H PRN PRN (Reason: fever or pain) Qty: 60 1RF Hold Instructions: Steathosis Co Q-10 300 mg capsule 300 mg PO DAILY Qty: 90 1RF omega-3 acid ethyl esters 1 gram capsule 2 cap PO DAILY Qty: 180 3RF ondansetron HCl 4 mg tablet See Rx Instructions .ROUTE .COMPLEX Qty: 30 0RF Dose Instruction: Take 1 tablet by mouth every 8 hours NEEDED FOR NAUSEA Rx Instructions: Take 1 tablet by mouth every 8 hours NEEDED FOR NAUSEA aspirin-acetaminophen (buffer) 250-250 mg Tablet 2 tab PO TID PRN Discharge Instructions Instructions: Clindamycin (By mouth), Cellulitis (ED) Additional Instructions: You were seen in the emergency department for your fall 2 days ago with some redness spreading from a minor abrasion to the bridge of your nose. This is likely early infection or cellulitis. There is no facial fracture seen on your CT, there is very little risk that your headache is tied to any intracranial bleeding, you likely have a mild concussion. I sent the antibiotic clindamycin to [facility] in [place], please take it as directed, take with probiotics. Take Tylenol 1000 mg every 6 hours for pain as needed for headache. Please return to the emergency department for any worsening infection despite treatment, fevers, nausea vomiting, neurologic changes Referrals: Yolis Jacobo DO [Primary Care Provider] - Discharge Data Discharge Date/Time-TO BE ENTERED AT DEPARTURE: 09/10/23 11:13
[2023-09-10 09:04] LABS: Abs Immature Grans 0.05 10^3/uL (0.0-0.06); Absolute Basophil Count 0.06 10^3/uL (0.0-0.2); Absolute Eosinophil Count 0.05 10^3/uL (0.0-0.7); Absolute Lymphocyte Count 2.19 10^3/uL (1.2-3.4); Absolute Monocyte Count 0.63 10^3/uL (0.1-0.8); Absolute Neutrophil Count 7.66 10^3/uL (1.2-6.7); Basophils % 0.6; Eosinophils % 0.5; HCT 41.7 % (36.0-46.0); HGB 13.6 g/dL (11.2-15.7); Immature Grans % 0.5; Lymphocytes % 20.6; MCHC 32.6 % (32.0-36.0); MCV 86 fL (80-95); MPV 9.4 fL (8.0-11.0); Monocytes % 5.9; Neutrophils % 71.9; Platelet Count 281 10^3/uL (130-400); RBC 4.86 10^6/uL (3.93-5.22); RDW 13.6 % (11.7-14.6); RDW-SD 42.8 fL; WBC 10.64 10^3/uL (4.4-10.8)
[2023-09-10 09:22] LABS: ALT 28 U/L (14-59); AST 20 U/L (15-37); Albumin 3.2 g/dL (3.4-5.0); Alkaline Phosphatase 149 U/L (46-116); Anion Gap 9.2 mmol/L (3-11); BUN 17 mg/dL (7-18); Bilirubin, Total 0.4 mg/dL (0.2-1.0); CO2 26.8 mmol/L (21.0-32.0); Chloride 100 mmol/L (98-107); Estimated GFR 60.61 (mL/min/1.73m2); Glucose 101 mg/dL (74-106); Potassium 3.9 mmol/L (3.5-5.1); Sodium 136 mmol/L (136-145); Total Protein 7.7 g/dL (6.4-8.2)
[2023-09-10 11:12] VITALS: BP 141/71; PULSE 66; RESP 20; O2SAT 97
== END 2023-09-10 11:13 | disposition home or self-care (01) ==
PROVIDERS: Emergency Provider Physician Assistant; PCP Student in an Organized Health Care Education/Training Program
DX: L03.211 Cellulitis of face (principal); I10 Essential (primary) hypertension; Z87.891 Personal history of nicotine dependence
CPT/HCPCS: 36415; 80053; 99284; 70486; 85025

== ENCOUNTER 2023-10-09 01:17 | Outpatient (CLI) | payer OTHER, SELFPAY ==
[2023-10-09 12:31] LABS: Anion Gap 9.8 mmol/L (3-11); BUN 18 mg/dL (7-18); CO2 25.2 mmol/L (21.0-32.0); Calcium 9.8 mg/dL (8.5-10.1); Chloride 107 mmol/L (98-107); Estimated GFR 60.61 (mL/min/1.73m2); Glucose 91 mg/dL (74-106); Magnesium 1.9 mg/dL (1.8-2.4); Potassium 3.9 mmol/L (3.5-5.1); Sodium 142 mmol/L (136-145)
[2023-10-13 17:36] LABS: Apolipoprotein B, Serum 118 mg/dL (48-124); Beta VLDL Cholesterol Not Detected mg/dL (<15); Beta VLDL Triglycerides Not Detected mg/dL (<15); Cholesterol, Total, CDC 206 mg/dL; Chylomicron Cholesterol Not Detected; Chylomicron Triglycerides Not Detected; HDL Cholesterol, CDC 35 mg/dL (>=50); LDL Cholesterol 135 mg/dL; LDL Triglycerides 59 mg/dL (<=50); Lp(a) Cholesterol <5 mg/dL (<5); LpX Not detected; Triglycerides, CDC 162 mg/dL; VLDL Cholesterol 36 mg/dL (<30); VLDL Triglycerides 85 mg/dL (<120)
== END 2023-10-09 01:18 | disposition home or self-care (01) ==
LOC: LOS 01:18
PROVIDERS: PCP Student in an Organized Health Care Education/Training Program; Visit Provider Student in an Organized Health Care Education/Training Program
DX: E55.9 Vitamin D deficiency, unspecified (principal); Z91.89 Other specified personal risk factors, not elsewhere classified; R11.0 Nausea; R11.10 Vomiting, unspecified; E78.00 Pure hypercholesterolemia, unspecified
CPT/HCPCS: 36415; 80048; 80061; 82306; 82172; 82664; 83735

== ENCOUNTER → 2023-10-16 04:26 | Outpatient (CLI) | payer OTHER, SELFPAY ==
--- NOTE | 2023-10-16 07:30 | DI.US_ITS ---
Exam(s) US THYROID EXAM: US THYROID CLINICAL HISTORY: Assess for change, lt inferior pole biopsy benign,multinodular goiter,e04.2. TECHNIQUE: Ultrasound thyroid performed using standard protocol. COMPARISON: US US THYROID from 10/14/2022 FINDINGS: ISTHMUS: 3 mm RIGHT LOBE: Size: 5.1 x 1.7 by 2.1 cm Echogenicity: Normal. Vascularity: Normal. Nodules: Multiple small circumscribed nodules. Largest nodules at the lower pole which is measured a t 5 x 6 x 8 millimeters. It is circumscribed, hypoechoic contains punctate calcifications, TR 5. Fo llow-up recommended due to size. LEFT LOBE: Size: 5.0 x 2.1 x 1.8 cm Echogenicity: Normal. Vascularity: Mildly hyperemic when compared to the right lobe. Nodules: Multiple nodules, largest at the lower pole measuring 1.2 x 0.9 x 1.0 cm. It is solid, hypo echoic, smoothly marginated with punctate microcalcifications. TR 5. This lesion was previously bio psied. It is measuring smaller when compared to prior. Additional nodule near lower pole measuring 1 x 0.8 by 1.0 cm, solid, hypoechoic with punctate echogenic foci, TR 5. Stable in size given measur ement error. Other smaller, similar appearing nodules. OTHER FINDINGS: None. IMPRESSION: Stable appearance of bilateral thyroid nodules, multinodular goiter. Decreased size of previously bi opsied lesion at the lower pole of the left lobe. DATA REPOSITORY:
== END ==
PROVIDERS: PCP Student in an Organized Health Care Education/Training Program; Visit Provider Otolaryngology
DX: E04.2 Nontoxic multinodular goiter (principal)
CPT/HCPCS: 76536

== ENCOUNTER → 2024-03-25 01:11 | Outpatient (CLI) | payer OTHER, SELFPAY ==
--- NOTE | 2024-03-25 09:42 | DI.DEXA_ITS ---
Exam(s) XR DEXA BONE DENSITY W/WO GERRY EXAM: XR DEXA BONE DENSITY W/WO GERRY CLINICAL HISTORY: Asymptomatic menopausal state, Z78.0, Vitamin D deficiency, E55.9 TECHNIQUE: [employer] Horizon C densitometer analysis of left hip and lumbar spine. The forearm was n ot scanned due to history of prior left wrist fracture. Lateral survey image of the thoracic and lum bar spine. COMPARISON: CR XR LUMBAR SPINE COMP W FLEX/EX from 01/07/2023 FINDINGS: Lateral view of the thoracic and lumbar spine shows no evidence of compression fractures. Bone mineral density measurements of the lumbar spine correspond to a total T-score of -2.9, in the osteoporotic range Bone mineral density measurements of the left hip correspond to a total T-score of negative 2.9, in the osteoporotic range. The femoral neck T-score is -2.7. IMPRESSION: Osteoporosis of the lumbar spine and hip.
== END ==
PROVIDERS: PCP Student in an Organized Health Care Education/Training Program; Visit Provider Student in an Organized Health Care Education/Training Program
DX: E55.9 Vitamin D deficiency, unspecified (principal); M85.80 Other specified disorders of bone density and structure, unspecified site; Z78.0 Asymptomatic menopausal state; M81.0 Age-related osteoporosis without current pathological fracture
CPT/HCPCS: 77080

== ENCOUNTER 2024-07-13 19:57 | Emergency (ER) | payer OTHER, SELFPAY ==
--- NOTE | 2024-07-13 19:45 | RT.EKG_ITS ---
APPROVED REPORT Exam: Resting ECG Reason for Exam: chest pain Patient Location: E HR:76 bpm ECG Measurements Heart Rate 76 AXIS VA 148 P 30 QRSd 103 QRS 87 QT 374 T 53 QTc 421 Conclusion Sinus rhythm, rate 76 No interval abnormalities No STEMI No significant changes compared to priors
[2024-07-13 20:00] VITALS: PULSE 91; RESP 20; O2SAT 95
--- NOTE | 2024-07-13 20:00 | DI.RAD_ITS ---
Exam(s) XR CHEST 2V PA LATERAL EXAM: XR CHEST 2V PA LATERAL CLINICAL HISTORY: Chest pain TECHNIQUE: 2D digital imaging was performed of the chest. Two images were obtained. PA and lateral views were obtained. COMPARISON: CR XR CHEST 1V IN DI DEPT from 10/23/2022 FINDINGS: MEDIASTINUM: Normal. HEART: Normal. PULMONARY VASCULATURE: Normal. LUNGS: Clear. PLEURAL SPACE: No pleural effusion or pneumothorax. BONE:Within normal limits for the patient's age. OTHER FINDINGS:Normal. IMPRESSION: No acute pulmonary findings. DATA REPOSITORY: RADIATION DOSE DELIVERED:
[2024-07-13 20:03] VITALS: RESP 24
[2024-07-13 20:04] VITALS: BP 161/108
[2024-07-13] MEDS: Aspirin 81 MG CHEW 324 MG CH (20:10)
[2024-07-13 20:15] VITALS: TEMP 36.4
[2024-07-13 20:16] LABS: Abs Immature Grans 0.06 10^3/uL (0.0-0.06); Absolute Basophil Count 0.09 10^3/uL (0.0-0.2); Absolute Eosinophil Count 0.02 10^3/uL (0.0-0.7); Absolute Lymphocyte Count 2.39 10^3/uL (1.2-3.4); Absolute Monocyte Count 0.32 10^3/uL (0.1-0.8); Absolute Neutrophil Count 5.15 10^3/uL (1.2-6.7); Basophils % 1.1 %; Eosinophils % 0.2 %; HCT 42.5 % (36.0-46.0); HGB 13.9 g/dL (11.2-15.7); Immature Grans % 0.7 %; Lymphocytes % 29.8 %; MCH 28.5 pg (27.0-33.0); MCHC 32.7 % (32.0-36.0); MCV 87 fL (80-95); Neutrophils % 64.2 %; Platelet Count 509 10^3/uL (130-400); RBC 4.87 10^6/uL (3.93-5.22); RDW 13.6 % (11.7-14.6); RDW-SD 44.1 fL; WBC 8.03 10^3/uL (4.4-10.8)
[2024-07-13 20:33] LABS: ALT 35 U/L (14-59); AST 22 U/L (15-37); Albumin 3.6 g/dL (3.4-5.0); Alkaline Phosphatase 192 U/L (46-116); Anion Gap 12.9 mmol/L (3-11); BUN 13 mg/dL (7-18); Bilirubin, Total 0.34 mg/dL (0.2-1.0); CO2 25.1 mmol/L (21.0-32.0); CREATININE 1.1 mg/dL (0.55-1.02); Calcium 10.1 mg/dL (8.5-10.1); Chloride 100 mmol/L (98-107); Estimated GFR 53.72 (mL/min/1.73m2); Glucose 109 mg/dL (74-106); Lipase 35 U/L (<78); Magnesium 1.8 mg/dL (1.8-2.4); Sodium 138 mmol/L (136-145); Total Protein 8.6 g/dL (6.4-8.2); Troponin I 5 ng/L (<or=51)
--- NOTE | 2024-07-13 20:34 | ED.GENADUL_ITS ---
Discharge Plan Disposition Patient Disposition: Home Condition: Stable Discharge Details Clinical Impression: Atypical pneumonia, Hypertension, Pulmonary emphysema, Steatosis of liver, Breast cancer, Post-mastectomy pain syndrome, Pulmonary nodule Primary Care Provider: Yolis Jacobo ED Provider: Genia Alba Home Meds and New Rx's Prescriptions: New azithromycin 250 mg tablet 250 mg PO DAILY 4 Days Qty: 4 0RF Rx Instructions: start on day 2 of therapy (07/13/2024) Morphine Ir, 4 Tabs/Btl [Msir, 4 Tabs/Btl] 15 mg PO DISPENSE Qty: 0 0RF Ondansetron Odt, 3 Tabs/Btl [Zofran Odt, 3 Tabs/Btl] 4 mg PO DISPENSE Qty: 0 0RF No Action amlodipine 2.5 mg tablet 2.5 mg PO DAILY 90 Days Qty: 90 4RF Rx Instructions: Take one tablet daily by mouth tramadol 50 mg tablet 50 mg PO DAILY PRN (Reason: severe pain) Qty: 30 2RF Rx Instructions: Continue for back pain, with monitoring sucralfate [Carafate] 1 gram tablet 1 g PO BID PRN (Reason: gastric pain) Qty: 60 1RF Rx Instructions: Try DAILY due to severe nausea, gastric upset famotidine 40 mg tablet 40 mg PO DAILY Qty: 90 3RF lisinopril 5 mg tablet 5 mg PO DAILY 90 Days Qty: 90 4RF Rx Instructions: Take one tablet daily by mouth. cholecalciferol (vitamin D3) 50 mcg (2,000 unit) capsule 50 mcg PO DAILY Qty: 90 3RF bisacodyl [Dulcolax (bisacodyl)] 5 mg tablet,delayed release (DR/EC) 5 mg PO ONCE Qty: 4 0RF polyethylene glycol 3350 17 gram/dose powder 17 g PO DAILY Qty: 238 0RF acetaminophen 500 mg capsule 1,000 mg PO Q8H PRN PRN (Reason: fever or pain) Qty: 60 1RF Co Q-10 300 mg capsule 300 mg PO DAILY Qty: 90 1RF icosapent ethyl [Vascepa] 1 gram capsule 2 g PO BID Qty: 360 3RF Rx Instructions: Continue (started with 1 tab twice daily x2 days - d/w clinical pharmacist) magnesium oxide 400 mg magnesium capsule 400 mg PO QHS Qty: 90 3RF Rx Instructions: Take qHs for sleep, calm, muscle cramping ondansetron HCl 4 mg tablet See Rx Instructions .ROUTE .COMPLEX Qty: 30 1RF Dose Instruction: Take 1 tablet by mouth every 8 hours NEEDED FOR NAUSEA Rx Instructions: Take 1 tablet by mouth every 8 hours NEEDED FOR NAUSEA Discharge Instructions Instructions: Chronic pain, Community-Acquired Pneumonia, Adult (DC) Additional Instructions: You were seen in the emergency department today for evaluation of back and chest pain, and were found to have a probable early pneumonia. In our department you have a full physical examination performed, had laboratory studies that were reassuring, and had an EKG and cardiac enzymes that showed no sign of damage to your heart. He had his chest CT that did not show any sign of pulmonary embolism or blood clot, but did show of early pneumonia like finding, which in the setting of your recent sick contacts should be treated with antibiotics. You did also have some small pulmonary nodules that your outpatient providers need to follow-up on. I provided you with medications for management of your symptoms over the next few days, and you received your first dose of antibiotics here in the emergency department. You need to pickler helper your additional doses of antibiotics at the pharmacy tomorrow and take them until they are gone, even if you start to feel better. You can always return to the emergency department for reevaluation, especially if you develop shortness of breath, change or worsening of your chest pain, or any other concerning symptoms. Thank you for allowing us to be part of your care. HPI General Date/Time Provider Initiated Documentation: 07/13/24 20:06 . Limitations to Documentation: no limitations . Information obtained by: patient, family and old records reviewed . HPI Narrative: HPI: This is a 69-year-old female patient, with a past medical history significant for breast cancer status post bilateral mastectomy, a history of congenital third kidney, status post nephrectomy, history of CKD, hepatic steatosis, and asthma, as well as hypertension, emphysema. She is presenting for evaluation of back and chest pain which started yesterday, resolved briefly, and then worsened again tonight while cooking dinner. She reports that she has had pain similar to this in the past but never this severe or that lasted this long. He reports that she tried heat packs and warm showers without improvement. States that she has not sustained injury, and is not actively undergoing chemotherapy. This pain is associated with a sensation of sweatiness, nausea, and shortness of breath. She has no personal history of PR or thromboembolic disease. Exam: Gen: Awake and alert, in no apparent distress HEENT: Non-icteric sclera Neck: Supple Lungs: No apparent respiratory distress, normal respiratory effort. Lung sounds clear and equal bilaterally without wheezes, rhonchi, rales CV: Appears well perfused, heart with regular rate and rhythm, no murmurs auscultated, strong and symmetrical distal pulses Abdomen: Non-distended, soft MSK: Moves 4 extremities without apparent limitation in ROM. No peripheral edema, no unilateral calf swelling or tenderness Skin: Visualized skin without rashes, cyanosis. Status post bilateral mastectomy with well-healing surgical scars Neuro: Normal Gait, no obvious focal deficits or facial asymmetry. Speaks in full, clear sentences. Psych: Appropriate for situation. MDM: This is a 69-year-old female patient presenting for evaluation of chest and back pain. My differential includes but is not limited to ACS including STEMI, NSTEMI, unstable angina. Considered pericarditis/myocarditis, aortic pathology, pulmonary embolism. The patient has not had any hematemesis to significantly increase my concern for Boerhaave syndrome, I also considered peptic ulcer disease, gastritis, pancreatitis, hepatitis/cholecystitis. I considered musculoskeletal back pain, pneumothorax. The patient has no evidence of fluid overload to suggest pulmonary edema or pleural effusion, and physical examination is less concerning for reactive airway disease exacerbation. An EKG was obtained and reviewed by myself, and shows no evidence of STEMI or ischemia. We will provide the patient with a dose of aspirin, and obtain la boratory studies to include CBC, CMP, magnesium, troponin, and D-dimer. I will obtain a chest x-ray. ED Course: I reviewed the patient's laboratory studies, which reveal no leukocytosis, anemia, or thrombocytopenia. Chemistry panel does not demonstrate any significant electrolyte derangements or evidence of kidney dysfunction, no evidence of liver dysfunction other than a mild alkaline phosphatase elevation to 192, which in the setting of her concern for bone metastases in the outpatient environment may be automobile sales representative of bone disease rather than liver disease. Her initial troponin was 5, and her lipase is low. Her D-dimer was noted to be quite elevated to 2006, and after discussion with the patient we will proceed with CT pulmonary embolism study. Given that the patient does not truly have a solitary kidney and does not have any evidence of significant renal disease on laboratory evaluation I feel that the benefits of diagnostic clarity in this case outweigh the risks of contrast administration. I also provided her with some Zofran for symptomatic management of nausea. Delta troponin also negative, per our high-sensitivity troponin protocol no indication for recheck. Independently interpreted the patient's CT scan, which does not show any evidence of pulmonary embolism however does show a hazy opacity which may represent an early pneumonia. The patient does endorse recent exposure to mycoplasma pneumonia, and her just started taking a macrolide and her grandsons were diagnosed with pneumonia earlier this week. She had some pulmonary nodules which she was made aware of, no other significant abnormalities to account for her symptoms. Patient reports symptomatic improvement on my reassessment, I will provided her with her first dose of azithromycin here in the emergency department, as well as some morphine and Zofran for breakthrough pain and nausea management over the next day or so. She was recommended to follow-up with her primary care provider in the next few days to discuss this visit and any symptoms that change, worsen, or persist. At this time, the patient has had a full medical evaluation and is safe for discharge to home. They are hemodynamically stable, ambulatory, and tolerating PO. They are understanding of the follow-up plan and return precautions. They left our facility without incident. Genia Alba MD Related Data Home Medications ?Medication ?Instructions ?Recorded ?Confirmed acetaminophen 500 mg capsule 1,000 mg (2 x 500 mg) PO Q8H PRN 07/04/22 07/13/24 PRN fever or pain #60 caps coenzyme Q10 300 mg capsule (Co 300 mg PO DAILY #90 caps 07/04/22 07/13/24 Q-10) amlodipine 2.5 mg tablet 2.5 mg PO DAILY 90 days #90 tabs 07/07/23 07/13/24 icosapent ethyl 1 gram capsule 2 g (2 x 1 gram) PO BID #360 caps 11/01/23 07/13/24 (Vascepa) bisacodyl 5 mg tablet,delayed 5 mg PO ONCE #4 tabs 11/26/23 07/13/24 release (Dulcolax (bisacodyl)) polyethylene glycol 3350 17 17 g PO DAILY #238 grams 11/26/23 07/13/24 gram/dose oral powder magnesium oxide 400 mg PO QHS #90 caps 12/30/23 07/13/24 ondansetron HCl 4 mg tablet See Rx Instructions .Route 04/25/24 07/13/24 .COMPLEX PRN USE Rx ([facility]) #30 tabs sucralfate 1 gram tablet (Carafate) 1 g PO BID PRN gastric pain #60 05/18/24 07/13/24 tabs tramadol 50 mg tablet 50 mg PO DAILY PRN severe pain #30 05/18/24 07/13/24 tabs cholecalciferol (vitamin D3) 50 50 mcg PO DAILY #90 caps 05/19/24 07/13/24 mcg (2,000 unit) capsule famotidine 40 mg tablet 40 mg PO DAILY #90 tabs 05/19/24 07/13/24 lisinopril 5 mg tablet 5 mg PO DAILY 90 days #90 tabs 05/19/24 07/13/24 MORPHine IR, 4 tabs/btl [MSIR, 4 15 mg PO DISPENSE ##0 07/13/24 tabs/btl] Ondansetron ODT, 3 tabs/btl 4 mg PO DISPENSE ##0 07/13/24 [Zofran ODT, 3 tabs/btl] azithromycin 250 mg tablet 250 mg PO DAILY 4 days #4 tabs 07/13/24 Previous Rx's ?Medication ?Instructions ?Recorded acetaminophen 500 mg capsule 1,000 mg (2 x 500 mg) PO Q8H PRN 07/04/22 PRN fever or pain #60 caps coenzyme Q10 300 mg capsule (Co 300 mg PO DAILY #90 caps 07/04/22 Q-10) amlodipine 2.5 mg tablet 2.5 mg PO DAILY 90 days #90 tabs 07/07/23 icosapent ethyl 1 gram capsule 2 g (2 x 1 gram) PO BID #360 caps 11/01/23 (Vascepa) bisacodyl 5 mg tablet,delayed 5 mg PO ONCE #4 tabs 11/26/23 release (Dulcolax (bisacodyl)) polyethylene glycol 3350 17 17 g PO DAILY #238 grams 11/26/23 gram/dose oral powder magnesium oxide 400 mg PO QHS #90 caps 12/30/23 ondansetron HCl 4 mg tablet See Rx Instructions .Route 04/25/24 .COMPLEX PRN USE Rx ([facility]) #30 tabs sucralfate 1 gram tablet (Carafate) 1 g PO BID PRN gastric pain #60 05/18/24 tabs tramadol 50 mg tablet 50 mg PO DAILY PRN severe pain #30 05/18/24 tabs cholecalciferol (vitamin D3) 50 50 mcg PO DAILY #90 caps 05/19/24 mcg (2,000 unit) capsule famotidine 40 mg tablet 40 mg PO DAILY #90 tabs 05/19/24 lisinopril 5 mg tablet 5 mg PO DAILY 90 days #90 tabs 05/19/24 MORPHine IR, 4 tabs/btl [MSIR, 4 15 mg PO DISPENSE ##0 07/13/24 tabs/btl] Ondansetron ODT, 3 tabs/btl 4 mg PO DISPENSE ##0 07/13/24 [Zofran ODT, 3 tabs/btl] azithromycin 250 mg tablet 250 mg PO DAILY 4 days #4 tabs 07/13/24 Allergies Allergy/AdvReac Type Severity Reaction Status Date / Time Penicillins Allergy Severe Anaphylaxis Verified 07/13/24 20:05 Sulfa (Sulfonamide Allergy Severe Anaphylaxis Verified 07/13/24 20:05 Antibiotics) tetracycline Allergy Other (See Verified 07/13/24 20:05 Comment) colchicine AdvReac Severe Nausea, Verified 07/13/24 20:05 vomiting [id number] Reductase AdvReac Severe Nausea Verified 07/13/24 20:05 Inhibitor metronidazole (From Flagyl) AdvReac Intermediate Hives Verified 07/13/24 20:05 procaine (From Novocain) AdvReac Intermediate Swelling/Ed Verified 07/13/24 20:05 boris NSAIDS (Non-Steroidal AdvReac Fatty Verified 07/13/24 20:05 Anti-Inflamma liver, CKD, s/p Nephrectomy General Stated Complaint: Chest Pain ALYSHA: 3 Course Vital Signs Vital signs: Vital Signs Pulse 91 H 07/13/24 20:00 Respiratory Rate 20 07/13/24 20:00 Pulse Oximetry 95 07/13/24 20:00 Temperature 36.4 C 07/13/24 20:15 Temperature Source Temporal Artery Scan 07/13/24 20:15 Pulse 91 H 07/13/24 20:00 Respiratory Rate 24 07/13/24 20:03 Respiratory Effort Short of Breath 07/13/24 20:03 Respiratory Depth Normal 07/13/24 20:03 Respiratory Pattern Normal 07/13/24 20:03 Blood Pressure 161/108 H 07/13/24 20:04 Pulse Oximetry 95 07/13/24 20:00 Oxygen Delivery Method Room Air 07/13/24 20:00 Oxygen Flow Rate 0 07/13/24 20:00 Lab/Test Results Lab/Test Results: Laboratory Tests Range/Units 07/13/24 20:06 WBC (4.4-10.8) 10^3/uL 8.03 RBC (3.93-5.22) 10^6/uL 4.87 Hgb (11.2-15.7) g/dL 13.9 Hct (36.0-46.0) % 42.5 MCV (80-95) fL 87 MCH (27.0-33.0) pg 28.5 MCHC (32.0-36.0) % 32.7 RDW (11.7-14.6) % 13.6 Plt Count (130-400) 10^3/uL 509 H MPV (8.0-11.0) fL 9.0 Immature Gran % % 0.7 Neutrophils % % 64.2 Lymphocytes % % 29.8 Monocytes % % 4.0 Eosinophils % % 0.2 Basophils % % 1.1 Nucleated RBC % (0.0-0.3) % 0.0 Absolute Neutrophils (1.2-6.7) 10^3/uL 5.15 Absolute Lymphocytes (1.2-3.4) 10^3/uL 2.39 Absolute Monocytes (0.1-0.8) 10^3/uL 0.32 Absolute Eosinophils (0.0-0.7) 10^3/uL 0.02 Absolute Basophils (0.0-0.2) 10^3/uL 0.09 Sodium (136-145) mmol/L 138 Potassium (3.5-5.1) mmol/L 4.0 Chloride (98-107) mmol/L 100 Carbon Dioxide (21.0-32.0) mmol/L 25.1 Anion Gap (3-11) mmol/L 12.9 H BUN (7-18) mg/dL 13 Creatinine (0.55-1.02) mg/dL 1.1 H Est GFR (CKD-EPI 2020) (mL/min/1.73m2) 53.72 Glucose (74-106) mg/dL 109 H Calcium (8.5-10.1) mg/dL 10.1 Magnesium (1.8-2.4) mg/dL 1.8 Total Bilirubin (0.2-1.0) mg/dL 0.34 AST (15-37) U/L 22 ALT (14-59) U/L 35 Alkaline Phosphatase (46-116) U/L 192 H Troponin I (<or=51) ng/L 5 Total Protein (6.4-8.2) g/dL 8.6 H Albumin (3.4-5.0) g/dL 3.6 Lipase (<78) U/L 35 Medical Decision Making Quality:SDOH Health Related Social Needs: No Data to Display PFSH All Active Problems (Updated 07/13/24 @ 22:24 by Genia Alba MD) Pulmonary nodule (Acute) Atypical pneumonia (Acute) Single kidney (Acute) Abnormal finding on imaging (Acute) Right kidney lesion on Abd MRI and Rt breast lesion, with re-check planned by [facility] [place] Team (~6mos).. Kidney lesion (Acute) Right kidney mass (Acute) [facility] from 04/02/24- Rafat Rodas DO.HE BRCA2 gene mutation positive in female (Acute) 04/08/24-MRI breast [facility] [place] [facility]; left breast cat 1 neg; Right breast cat 3:probably b enign finding. short interval follow up. (recommend sonographic evaluation of right breast lesion with possible bioposy. If the lesion is not visualized by US, recommend MRI follow up in 6 months for documentation of stability). Screening for colorectal cancer (Acute) Post-mastectomy pain syndrome (Acute) Nerve pain, tightness, burning (now in the back also) .. Assoc with back pain, Deltoid MM/Chest Pain .. Chronic abdominal pain (Acute) Philip type 2a hyperlipoproteinemia (Acute) Radiculopathy of cervicothoracic region (Acute) Neuropathy (Acute) Injury of left deltoid region (Acute) Hx of back injury (Acute) Back pain associated with peripheral numbness (Acute) Pain Mgmt seen 09/2023 (Tramadol ok) (Considering IC Nerve Block; T Blocks, per Dr. Copeland) Thyroid nodule (Acute) 09/2022 US. 12/04/22 US fine needle aspiration of left thyroid nodule (ordering: Dr. Aj) -paucicellular specimen with features compatible with benign follicular nodule.-cyst contents. activity note from 12/05/22: Dr Aj has notified pt of results and recommends repeat f/u US 1 year. Hx of gout (Acute) Breast cancer (Chronic) Left Breast, s/p mastectomy (Rt Prophlx)(Unknown Lymph Path). Dr. Lazcano (M A). Soft tissue complaint (Acute) Rt chest wall, inner anterior axilla Chest pain in adult (Acute) Rt chest wall, DDx (cellulitis, abscess, scar tissue, myopathy) Vitamin D deficiency (Acute) just over minimum @ 35 (30-100), but with goal @ 40-50... Anxiety (Chronic ~10/2020) Chronic pain syndrome (Chronic) Hypertension (Chronic ~11/2017) Pulmonary emphysema (Acute ~12/2017) Asthma (Chronic) Diverticular disease of colon (Chronic ~12/2017) Hx with CCPN (PAOLA Dupont).. Steatosis of liver (Chronic ~12/2017) Past notes recommend abstaining from alcohol, acetaminophen .. Osteopenia (Acute ~12/2016) Hypercholesterolemia with hypertriglyceridemia (Chronic) [employer] Hyperchol; Apolipoprotein B (+) Solitary kidney, acquired (Chronic) Internal derangement of right knee (Acute) COVID-19 vaccine series declined (Acute) Tear of medial meniscus of right knee (Acute) Tear of lateral meniscus of right knee (Acute) Medical History Nausea Vomiting GERD (gastroesophageal reflux disease) (~07/2010) Manageable, 2021- .. with N/V 02/2023 Coronary atherosclerosis (~10/2019) Gout Started with move to [place]; Allopurinol daily. Family history of BRCA gene positive Pt reports BRCA (+) herself. Multinodular goiter (~10/2020) 11/06/20 Ultra Sound of thyroid Hyperuricemia (~12/2017) Urinary incontinence, mixed (~11/2018) Tachycardia (~12/2017) Constipation (~05/2017) Hiatal hernia (~05/2019) Left ventricular hypertrophy (~11/2018) Mitral valve regurgitation (~12/2017) Hypertensive heart and renal disease (~11/2018) Vertiginous syndrome (~06/2010) Positional vertigo (~05/2020) Photophobia (~09/2019) Tobacco dependence (~07/2010) 2019 stopped Cannabis dependence (~05/2020) Metabolic acidosis Gouty arthropathy Hypercalcemia (~11/2017) Cobalamin deficiency History of ectopic Surgical History H/O tubal ligation (~1975) H/O lumpectomy (~1975) Left wrist S/P lumpectomy, left breast (~1987) History of left mastectomy (02/03/12) bilat..left breast cancer History of cholecystectomy (05/12/14) History of bilateral salpingo-oophorectomy (BSO) (08/04/15) S/P breast reconstruction, bilateral (~2015) H/O right mastectomy (10/23/15) Please MRI continue good prophylactic per pt report, 10/23/2015, Manda. History of endometrial ablation (~2008) S/P thyroid biopsy (01/22/19) History of nephrectomy (~1955) Hx of cataract extraction Family History Father Colon cancer Prostate cancer Cancer skin Heart disease Mother Depression Heart disease Brother , at age 52 from Pancreatic [place] Pancreatic cancer Social History Smoking/Tobacco Use Status: Former Tobacco Use Quit Date: 01/05/21 Tobacco: How many years used: 30 Smoking risk assessment performed?: Yes Alcohol Intake: never Drug use: Occasionally Substance use type: marijuana Adopted: No Caregiver/Support person: No Foster care: No Household members: spouse, family and children Housing: house Number of Children: 3 number of grandchildren: 8 Communication Needs: None Education Level: college Details: bachelor's degree Do you need help understanding health information?: Rarely current occupation: Retired NURSE Pets and animals: Yes (3) Pets and animals: dog(s) Sexually active: No Do you think of yourself as: straight/heterosexual Current gender identity: female What is your relationship status?: How often do you talk on the phone with friends or family?: once per week How often do you get together with friends or relatives?: once per week Do you belong to any clubs or organized social groups?: no Panel score (0-1 are the most socially isolated patients): 1 What type of physical activity do you participate in: walking and bicycling Duration: 60-90 minutes/day Frequency: daily Lavern/Temple: None Special lavern needs: Yes Agree to transfusion: No Seatbelt use: sometimes Helmet use: Yes Helmet use: sometimes Drive intox or ride w/intox route driver salesperson: No Do you feel safe at home: Yes Do you feel safe in your relationship?: Yes
[2024-07-13 20:43] LABS: D-Dimer 2006 ng/mlFEU (<500)
--- NOTE | 2024-07-13 20:45 | DI.CT_ITS ---
Exam(s) CT CHEST PE CTA EXAM: CT CHEST PE CTA CLINICAL HISTORY: CP, hx breast Ca, elevated d-dimer. TECHNIQUE: Imaging Protocol: Axial CT angiography was performed with multi-slice acquisition and mu lti-planar and/or 3D reconstructions. Lung computer aided detection (CAD) was utilized. CONTRAST MATERIAL: Intravenous: Omnipaque 350 contrast volume:60 mL COMPARISON: CT CT CHEST LUNG CANCER SCREEN from 05/14/2021 FINDINGS: Tracheobronchial tree: Patent where visualized. No bronchiectasis. Pulmonary parenchyma: There is a small peripheral infiltrate in the right upper lobe. This may repre sent atelectasis. The lungs are otherwise clear. No new or suspicious nodules are identified. No a rchitectural distortion. Pulmonary Arteries: No evidence of filling defect to suggest pulmonary emboli. Mediastinum and Jenny: No dominant adenopathy or fluid collection. The esophagus is unremarkable. Visualized thyroid gland: Unremarkable. Pleura: No effusion or pneumothorax. Heart: The heart is not dilated. Mild coronary artery calcification is present. No pericardial effus ion. Aorta: No evidence of a thoracic aortic aneurysm. No evidence of dissection. Mild atherosclerotic ca lcification. Upper abdomen: There is diverticulosis seen in the colon. The patient is status post cholecystectom y. Soft tissues: Patient has bilateral breast implants. Bones: Within normal limits for the patient's age. IMPRESSION: 1. No evidence of pulmonary embolism, thoracic aortic dissection or aneurysm. 2. Small peripheral infiltrate in the right upper lobe. This may represent atelectasis. Small infec tious process cannot be excluded. RADIATION DOSE DELIVERED: 59.37mGy.cm Total DLP DATA REPOSITORY: All CT scans at this facility are submitted to the National Radiology Data Registry (NRDR) Dose Index Registry (DIR) with the [employer] ([employer]). RADIATION OPTIMIZATION: All CT scans at this facility use at least one of these dose optimization te chniques: automated exposure control; mA and/or kV adjustment per patient size (includes targeted exa ms where dose is matched to clinical indication); or iterative reconstruction.
[2024-07-13] MEDS: Ondansetron 4 MG/2 ML VIAL IVP (20:56)
[2024-07-13] MEDS: Omnipaque 350 MG/ML 100 ML BTL IJ (21:08)
--- NOTE | 2024-07-13 21:11 | DI.VRAD_ITS ---
PROCEDURE INFORMATION: Exam: XR Chest Exam date and time: 07/13/2024 8:22 PM Age: 69 years old Clinical indication: Pain; Chest pressure TECHNIQUE: Imaging protocol: Radiologic exam of the chest. Views: 2 views. COMPARISON: CR XR CHEST 1V IN DI DEPT 10/23/2022 2:04 PM FINDINGS: Lungs: Clear lungs. Pleural spaces: No pneumothorax. No sizable pleural effusion. Heart/Mediastinum: No cardiomegaly. Bones/joints: Unremarkable. IMPRESSION: Clear lungs. Dictated and Authenticated by: Palomo Reis MD. Ordering:JACQUELYN Vargas MD
[2024-07-13] MEDS: Normal Saline - Diluent 50 ML VIAL IV (21:12)
[2024-07-13 21:27] LABS: Troponin I 4 ng/L (<or=51)
--- NOTE | 2024-07-13 22:15 | DI.VRAD_ITS ---
PROCEDURE INFORMATION: Exam: CTA Chest With Contrast Exam date and time: 07/13/2024 9:03 PM Age: 69 years old Clinical indication: Pain; Chest pressure; Prior surgery; Surgery date: 6+ months; Surgery type: Mastectomy/lumpectomy TECHNIQUE: Imaging protocol: Computed tomographic angiography of the chest with contrast. Exam focused on the arteries. 3D rendering (Not supervised by radiologist): MIP and/or 3D reconstructed images were created by the technologist. Contrast material: OMNIPAQUE 350; Contrast volume: 60 ml; Contrast route: INTRAVENOUS (IV); COMPARISON: CT CHEST LUNG CANCER SCREEN 05/14/2021 1:10 PM FINDINGS: Pulmonary arteries: No pulmonary embolism identified. Aorta: No thoracic aortic aneurysm or dissection. Thyroid: Thyroid gland partially excluded from view and partially obscured by artifact but grossly unremarkable, as seen, through its visualized portion. Lungs: Small hazy peripheral opacities in the right upper lobe, images 23 and 26 of series 5. 3 mm nodular density in the right lower lobe, image 46 of series 5. 4 mm nodular density in the lingula on image 32 of series 5. No pulmonary consolidation. Pleural spaces: No pleural effusion or pneumothorax. Heart: Normal-sized heart. Fatty infiltration of the interatrial septum with a maximum septal thickness of proximally 2 cm. Lymph nodes: No pathologically enlarged mediastinal or hilar lymph nodes. Gallbladder and biliary ducts: Prior cholecystectomy. Bones/joints: Lower ribs partially excluded from view and incompletely evaluated. Otherwise, no acute fracture seen among the bones of the chest. Soft tissues: Bilateral mammoplasty prostheses partially visualized. IMPRESSION: 1. No pulmonary embolism identified. 2. Small regions of hazy pulmonary density in the right upper lobe. Atelectasis is suspected although a mild acute infectious process could probably mimic this appearance. 3. 3 mm nodular density in the right lower lobe. 4 mm nodular density in the lingula. Dictated and Authenticated by: Segun Alva MD. Ordering:JACQUELYN Vargas MD
[2024-07-13 22:30] VITALS: BP 138/87; PULSE 71; RESP 16; TEMP 36.4; O2SAT 98
[2024-07-13] MEDS: Azithromycin 250 MG TAB 500 MG PO (22:38)
[2024-07-13] MEDS: MORPHine IR 15 MG TAB, 4 TABS/BTL PO (22:38)
[2024-07-13] MEDS: Ondansetron O.D.T. 4 MG TABEF (22:38)
== END 2024-07-13 22:42 | disposition home or self-care (01) ==
PROVIDERS: Emergency Provider Emergency Medicine; PCP Student in an Organized Health Care Education/Training Program
DX: J18.9 Pneumonia, unspecified organism (principal); R91.1 Solitary pulmonary nodule; I10 Essential (primary) hypertension; J43.9 Emphysema, unspecified; K76.0 Fatty (change of) liver, not elsewhere classified; G89.28 Other chronic postprocedural pain; Z85.3 Personal history of malignant neoplasm of breast; Z90.13 Acquired absence of bilateral breasts and nipples; Z98.82 Breast implant status; Z87.891 Personal history of nicotine dependence
CPT/HCPCS: 71275; 80053; 83690; 93005; 96374; 99285; 71046; 83735; 84484; 85025; 85379; 93010; J2405; J3490

== ENCOUNTER 2024-07-27 15:48 | Outpatient (CLI) | payer OTHER, SELFPAY ==
[2024-07-27 16:04] LABS: Abs Immature Grans 0.03 10^3/uL (0.0-0.06); Absolute Basophil Count 0.08 10^3/uL (0.0-0.2); Absolute Eosinophil Count 0.12 10^3/uL (0.0-0.7); Absolute Monocyte Count 0.35 10^3/uL (0.1-0.8); Absolute Neutrophil Count 4.58 10^3/uL (1.2-6.7); Eosinophils % 1.6 %; HGB 13.6 g/dL (11.2-15.7); Immature Grans % 0.4 %; Lymphocytes % 32.6 %; MCH 27.8 pg (27.0-33.0); MCHC 31.6 % (32.0-36.0); MCV 88 fL (80-95); Monocytes % 4.6 %; Neutrophils % 59.8 %; Platelet Count 336 10^3/uL (130-400); RDW 14.1 % (11.7-14.6); RDW-SD 45.7 fL; WBC 7.66 10^3/uL (4.4-10.8)
[2024-07-27 17:22] LABS: Iron 71 ug/dL (50-170); Total Iron Binding Capacity 378 ug/dL (250-450); Transferrin Sat 19 % (15-50)
[2024-07-27 17:35] LABS: Folate 18.4 ng/mL (8.6-20.0)
[2024-07-27 17:47] LABS: ALT 36 U/L (14-59); AST 32 U/L (15-37); Albumin 3.6 g/dL (3.4-5.0); Alkaline Phosphatase 151 U/L (46-116); Anion Gap 9.8 mmol/L (3-11); BUN 17 mg/dL (7-18); Bilirubin, Total 0.33 mg/dL (0.2-1.0); CO2 26.2 mmol/L (21.0-32.0); CREATININE 1.1 mg/dL (0.55-1.02); Calcium 9.6 mg/dL (8.5-10.1); Chloride 106 mmol/L (98-107); Estimated GFR 53.72 (mL/min/1.73m2); Glucose 87 mg/dL (74-106); Potassium 4.3 mmol/L (3.5-5.1); Sodium 142 mmol/L (136-145); TSH (W/Ref FT4) 1.12 uIU/mL (0.36-3.74); Total Protein 7.3 g/dL (6.4-8.2); Vitamin B12 578 pg/mL (193-986)
== END 2024-07-27 15:49 | disposition home or self-care (01) ==
LOC: LBO 15:48
PROVIDERS: PCP Student in an Organized Health Care Education/Training Program; Visit Provider Student in an Organized Health Care Education/Training Program
DX: N17.9 Acute kidney failure, unspecified (principal); E46 Unspecified protein-calorie malnutrition; I10 Essential (primary) hypertension; M85.80 Other specified disorders of bone density and structure, unspecified site; E55.9 Vitamin D deficiency, unspecified; K76.0 Fatty (change of) liver, not elsewhere classified; R79.89 Other specified abnormal findings of blood chemistry; Z91.89 Other specified personal risk factors, not elsewhere classified
CPT/HCPCS: 36415; 80053; 82607; 82746; 83540; 83550; 84443; 85025

== ENCOUNTER 2024-10-12 09:08 | Outpatient (CLI) | payer OTHER, SELFPAY ==
[2024-10-19 09:12] LABS: Apolipoprotein B, Serum 122 mg/dL (48-124); Beta VLDL Cholesterol Not Detected mg/dL (<15); Beta VLDL Triglycerides Not Detected mg/dL (<15); Cholesterol, Total, CDC 231 mg/dL; Chylomicron Cholesterol Not Detected; Chylomicron Triglycerides Not Detected; HDL Cholesterol, CDC 38 mg/dL (>=50); LDL Cholesterol 152 mg/dL; LDL Triglycerides 77 mg/dL (<=50); Lp(a) Cholesterol <5 mg/dL (<5); LpX Not detected; Triglycerides, CDC 246 mg/dL; VLDL Cholesterol 41 mg/dL (<30); VLDL Triglycerides 140 mg/dL (<120)
== END 2024-10-12 09:09 | disposition home or self-care (01) ==
LOC: LBO 09:09
PROVIDERS: PCP Family Medicine; Visit Provider Nurse Practitioner Family
DX: E78.00 Pure hypercholesterolemia, unspecified (principal); F11.20 Opioid dependence, uncomplicated; M54.13 Radiculopathy, cervicothoracic region; M79.9 Soft tissue disorder, unspecified; Z87.828 Personal history of other (healed) physical injury and trauma; R20.0 Anesthesia of skin
CPT/HCPCS: 36415; 80061; 82172; 82664